=== PATIENT | male | born 1935 | race Caucasian/White ===

== ENCOUNTER 2017-01-26 09:14 | Observation (INO) ==
--- NOTE | 2017-01-26 09:46 | Emergency Department Note ---
Disposition Clinical Impression: Dehydration, Elevated troponin Nausea and vomiting Qualifiers: Vomiting type: unspecified Vomiting Intractability: non-intractable Qualified Code(s): R11.2 - Nausea with vomiting, unspecified Disposition: Admitted As Inpatient Condition: Fair Time of Disposition: 11:29 Nausea/Vomiting/Diarrhea HPI - General Chief complaint: ED Nausea/Vomiting/Diarrhea Stated complaint: weakness Time Seen by Provider: 01/26/17 09:27 Source: patient, EMS Limitations: no limitations Nursing Notes Reviewed: Yes Vital Signs Reviewed: Yes - History of Present Illness HPI Narrative: Nontoxic-appearing 81-year-old male presents from home by EMS for evaluation of generalized weakness, fatigue, nausea, vomiting, and diarrhea. Symptoms began 4 days ago and gradually worsened. He does complain of some diffuse abdominal cramping, that is slightly worse in the right lower quadrant region. He denies any fever, chest pain, shortness of breath, mucous or blood in stool, headache, myalgias, recent foreign travel, or known sick contacts. Pt Subjective Complaint: nausea, vomiting, diarrhea, other (Weakness, fatigue) Onset (ago): day(s) (4 days) Associated Abdominal Pain: Yes If pain, Location of pain: diffuse, RLQ Severity: moderate Quality: cramping Consistency: intermittent Improves with: nothing Worsens with: nonthing Associated symptoms: Denies: chest pain, cough, diaphoresis, fever/chills, headaches, shortness of breath - Related Data Home Medications Medication Instructions Recorded Confirmed Amitriptyline [Elavil] 25 mg PO BID 01/26/17 01/26/17 Aspirin [Lo-Dose Aspirin EC] 81 mg PO DAILY 01/26/17 01/26/17 Dapagliflozin Propanediol [Farxiga] 5 mg PO DAILY 01/26/17 01/26/17 Levothyroxine Sodium [Levoxyl] 75 mcg PO DAILY 01/26/17 01/26/17 Linagliptin [Tradjenta] 5 mg PO DAILY 01/26/17 01/26/17 Lisinopril [Zestril] 10 mg PO DAILY 01/26/17 01/26/17 Lutein [Natural Lutein] 20 mg PO DAILY 01/26/17 01/26/17 Metformin HCl [Glucophage] 1,000 mg PO BID 01/26/17 01/26/17 Multivitamin [Multivitamins] 1 cap PO DAILY 01/26/17 01/26/17 Allergies Allergy/AdvReac Type Severity Reaction Status Date / Time Penicillins Allergy Rash Verified 01/26/17 12:03 All systems ED: reviewed and negative except as stated. Constitutional: Denies: fever, chills, weakness, weight change Eyes: Denies: eye pain, eye discharge, vision change ENT ED: Denies: ear pain, throat pain, dental pain, hearing loss, epistaxis, congestion, dysphagia Cardiovascular: Denies: chest pain, palpitations, dyspnea on exertion, edema, syncope Respiratory: Denies: cough, dyspnea, wheezes, hemoptysis, stridor Gastrointestinal: Reports: as per HPI, abdominal pain, nausea, vomiting, diarrhea. Denies: constipation, hematemesis, melena, hematochezia Genitourinary: Denies: urgency, dysuria, frequency, hematuria Musculoskeletal: Denies: back pain, neck pain, arthralgia, myalgia Integumentary: Denies: rash, abrasion, lesions Neurological: Reports: as per HPI, weakness. Denies: headache, numbness, paresthesias, confusion, abnormal gait, vertigo Psychiatric: Denies: anxiety, depression, suicidal thoughts, homicidal thoughts , auditory hallucinations, visual hallucinations Endocrine: Denies: fatigue Hematological/Lymphatic: Denies: easy bleeding, easy bruising Allergic/Immunologic: Denies: facial swelling, urticaria Past Medical History - Past Medical History Attestation: Yes The following information was validated with the patient. Source: patient, nursing notes reviewed Medical history: Reports: diabetes Psychiatric history: Reports: no psych history - Social History Smoking Status: Never smoker Smokeless Tobacco Status: No Alcohol use: Reports: none Drug use: Reports: none Physical Exam - General Limitations: no limitations General appearance: alert, in no apparent distress - Head Head exam: atraumatic, normocephalic, normal inspection - Eye Eye exam: Present: normal appearance, PERRL, EOMI. Absent: nystagmus - ENT ENT exam: mucous membranes dry - Neck Neck exam: Present: normal inspection, full ROM, trachea midline - Chest Chest inspection: Present: normal inspection, symmetric chest wall rise - Respiratory Respiratory exam: Present: normal lung sounds bilaterally. Absent: respiratory distress, wheezes, stridor, accessory muscle use, prolonged expiratory phase - Cardiovascular Cardiovascular exam: Present: regular rate, normal rhythm, normal heart sounds - Abdominal Exam Abdominal exam: Present: soft, tenderness, normal bowel sounds. Absent: distention, guarding, rebound, rigidity Abdominal tenderness: Present: diffuse, mild - Extremities Exam Extremities exam: Present: normal inspection, full ROM. Absent: tenderness, pedal edema - Neurological Exam Neurological exam: Present: alert, oriented X3 - Psychiatric Psychiatric exam: Present: normal affect, normal mood - Skin Skin exam: Present: warm, dry, intact, normal color Course Course Narrative: I have discussed this patient's case with Dr. Martinez. Dr. Martinez and has had a [id number] evaluation with the patient and agrees with the aforementioned plan. 1125: I spoke with Dr. Newman of the hospitalist service who has accepted the patient for admission to his service for further treatment of dehydration and elevated cardiac enzyme level. Dr. Newman will obtain serial troponin levels for further evaluation of this. 1640: The patient remains in emergency department patient as a result of an ED hold. His repeat troponin did come back elevated compared to the first. Troponin is now 0.80. He stated he denies any chest pain or pressure. A repeat EKG was obtained and was found to be normal. EKG was timed 4 1637. EKG was reviewed by Dr. Martinez as well. EKG shows a sinus rhythm at a rate of 93 bpm. TX interval 173, QRS duration 86, QT/QTc interval 325/376. No ectopy noted. No STEMI. I have notified the hospitalist, Dr. Newman regarding this matter. He request that I consult with cardiology on-call. Allergy has been paged at this time and I am awaiting a return call back. 1710: Spoke with Dr. Hilliard, cardiology on-call. She recommends initiating a heparin drip. She states that a member from the [facility] helper service will see the patient in-house tomorrow. I discussed this plan with Dr. Martinez and Dr. Martinez is in agreement. 1738: I have made Dr. Newman aware of Dr. Hilliard's recommendation to initiate a heparin drip. Vital Signs Temperature 98.0 F 01/26/17 09:21 Pulse Rate 108 01/26/17 09:21 Respiratory Rate 16 01/26/17 09:21 Blood Pressure 138/92 01/26/17 09:21 O2 Sat by Pulse Oximetry 97 01/26/17 09:21 Temperature 98.0 F 01/26/17 09:21 Pulse Rate 94 01/26/17 14:16 Respiratory Rate 16 01/26/17 14:16 Blood Pressure 92/69 01/26/17 14:16 O2 Sat by Pulse Oximetry 96 01/26/17 11:55 Oxygen Delivery Oxygen Delivery Room Air Nausea/Vomiting/Diarrhea - Medical Records Medical records reviewed: Yes I reviewed the patient's medical records. - Lab Data Lab results reviewed: Yes I reviewed the patient's lab results. Lab results narrative: Laboratory Last Values WBC 6.8 K/mcL (4.3-11.1) 01/26/17 09:49 RBC 5.31 M/mcL (4.19-5.50) 01/26/17 09:49 Hgb 15.3 g/dL (12.9-16.9) 01/26/17 09:49 Hct 46.5 % (37.5-50.1) 01/26/17 09:49 MCV 87.6 fL (83.0-100.0) 01/26/17 09:49 MCH 28.8 pg (28.0-33.3) 01/26/17 09:49 MCHC 32.9 g/dL (31.6-35.5) 01/26/17 09:49 RDW 13.1 % (11.5-14.5) 01/26/17 09:49 Plt Count 218 K/mcL (140-400) 01/26/17 09:49 MPV 9.2 fL (9.4-12.4) L 01/26/17 09:49 Immature Gran % 0.6 % (0-4) 01/26/17 09:49 Seg Neutrophils % 72.5 % 01/26/17 09:49 Lymphocytes % 18.5 % 01/26/17 09:49 Monocytes % 7.2 % 01/26/17 09:49 Eosinophils % 0.6 % 01/26/17 09:49 Basophils % 0.6 % 01/26/17 09:49 Neutrophils # 4.9 K/mcL (1.6-8.9) 01/26/17 09:49 Lymphocytes # 1.3 K/mcL (0.6-4.6) 01/26/17 09:49 Monocytes # 0.5 K/mcL (0.0-1.3) 01/26/17 09:49 Eosinophils # 0.0 K/mcL (0.0-0.6) 01/26/17 09:49 Basophils # 0.0 K/mcL (0.0-0.2) 01/26/17 09:49 Sodium 138 mEq/L (136-145) 01/26/17 09:49 Potassium 4.4 mEq/L (3.5-4.5) 01/26/17 09:49 Chloride 102 mEq/L (98-109) 01/26/17 09:49 Carbon Dioxide 24 mEq/L (19-29) 01/26/17 09:49 BUN 26 mg/dL (8-26) 01/26/17 09:49 Creatinine 1.38 mg/dL (0.72-1.25) H 01/26/17 09:49 Est GFR ( Amer) 60 (> 60) 01/26/17 09:49 Est GFR (Non-Af Amer) 49 (> 60) L 01/26/17 09:49 BUN/Creatinine Ratio 19 (6-26) 01/26/17 09:49 Glucose 177 mg/dL (70-99) H 01/26/17 09:49 Calculated Osmolality 295 (280-300) 01/26/17 09:49 Lactic Acid 2.3 mmol/L (0.5-2.2) H 01/26/17 09:49 Calcium 10.2 mg/dL (8.6-10.8) 01/26/17 09:49 Troponin I 0.42 ng/mL (0-0.03) H* 01/26/17 09:49 Amylase 72 Units/L (25-125) 01/26/17 09:49 Lipase 23 Units/L (8-78) 01/26/17 09:49 Urine Color Yellow (Yellow) 01/26/17 09:53 Urine Clarity Clear (Clear) 01/26/17 09:53 Urine pH 5.5 pH Units (5.0-8.0) 01/26/17 09:53 Ur Specific [place] > 1.030 (1.010-1.025) H 01/26/17 09:53 Urine Protein Negative mg/dL (Neg-Trace) 01/26/17 09:53 Urine Glucose (UA) >=1000 mg/dL (Normal) H 01/26/17 09:53 Urine Ketones Trace mg/dL (Negative) H 01/26/17 09:53 Urine Blood Negative (Negative) 01/26/17 09:53 Urine Nitrite Negative (Negative) 01/26/17 09:53 Urine Bilirubin Negative (Negative) 01/26/17 09:53 Urine Urobilinogen Normal mg/dL (Normal) 01/26/17 09:53 Ur Leukocyte Esterase Negative (Negative) 01/26/17 09:53 Ur Culture Indicated? NO (NO) 01/26/17 09:53 Result diagrams: 01/26/17 09:49 01/26/17 09:49 Lab Results 01/26/17 01/26/17 01/26/17 Range/Units 09:49 09:49 09:49 WBC 6.8 (4.3-11.1) K/mcL RBC 5.31 (4.19-5.50) M/mcL Hgb 15.3 (12.9-16.9) g/dL Hct 46.5 (37.5-50.1) % MCV 87.6 (83.0-100.0) fL MCH 28.8 (28.0-33.3) pg MCHC 32.9 (31.6-35.5) g/dL RDW 13.1 (11.5-14.5) % Plt Count 218 (140-400) K/mcL MPV 9.2 L (9.4-12.4) fL Immature Gran % 0.6 (0-4) % Seg Neutrophils % 72.5 % Lymphocytes % 18.5 % Monocytes % 7.2 % Eosinophils % 0.6 % Basophils % 0.6 % Neutrophils # 4.9 (1.6-8.9) K/mcL Lymphocytes # 1.3 (0.6-4.6) K/mcL Monocytes # 0.5 (0.0-1.3) K/mcL Eosinophils # 0.0 (0.0-0.6) K/mcL Basophils # 0.0 (0.0-0.2) K/mcL Sodium 138 (136-145) mEq/L Potassium 4.4 (3.5-4.5) mEq/L Chloride 102 (98-109) mEq/L Carbon Dioxide 24 (19-29) mEq/L BUN 26 (8-26) mg/dL Creatinine 1.38 H (0.72-1.25) mg/dL Est GFR ( Amer) 60 (> 60) Est GFR (Non-Af Amer) 49 L (> 60) BUN/Creatinine Ratio 19 (6-26) Glucose 177 H (70-99) mg/dL Calculated Osmolality 295 (280-300) Lactic Acid 2.3 H (0.5-2.2) mmol/L Calcium 10.2 (8.6-10.8) mg/dL Troponin I (0-0.03) ng/mL Amylase 72 (25-125) Units/L Lipase 23 (8-78) Units/L Urine Color (Yellow) Urine Clarity (Clear) Urine pH (5.0-8.0) pH Units Ur Specific [place] (1.010-1.025) Urine Protein (Neg-Trace) mg/dL Urine Glucose (UA) (Normal) mg/dL Urine Ketones (Negative) mg/dL Urine Blood (Negative) Urine Nitrite (Negative) Urine Bilirubin (Negative) Urine Urobilinogen (Normal) mg/dL Ur Leukocyte Esterase (Negative) Ur Culture Indicated? (NO) 01/26/17 01/26/17 01/26/17 Range/Units 09:49 09:53 15:51 WBC (4.3-11.1) K/mcL RBC (4.19-5.50) M/mcL Hgb (12.9-16.9) g/dL Hct (37.5-50.1) % MCV (83.0-100.0) fL MCH (28.0-33.3) pg MCHC (31.6-35.5) g/dL RDW (11.5-14.5) % Plt Count (140-400) K/mcL MPV (9.4-12.4) fL Immature Gran % (0-4) % Seg Neutrophils % % Lymphocytes % % Monocytes % % Eosinophils % % Basophils % % Neutrophils # (1.6-8.9) K/mcL Lymphocytes # (0.6-4.6) K/mcL Monocytes # (0.0-1.3) K/mcL Eosinophils # (0.0-0.6) K/mcL Basophils # (0.0-0.2) K/mcL Sodium (136-145) mEq/L Potassium (3.5-4.5) mEq/L Chloride (98-109) mEq/L Carbon Dioxide (19-29) mEq/L BUN (8-26) mg/dL Creatinine (0.72-1.25) mg/dL Est GFR ( Amer) (> 60) Est GFR (Non-Af Amer) (> 60) BUN/Creatinine Ratio (6-26) Glucose (70-99) mg/dL Calculated Osmolality (280-300) Lactic Acid (0.5-2.2) mmol/L Calcium (8.6-10.8) mg/dL Troponin I 0.42 H* 0.80 H* (0-0.03) ng/mL Amylase (25-125) Units/L Lipase (8-78) Units/L Urine Color Yellow (Yellow) Urine Clarity Clear (Clear) Urine pH 5.5 (5.0-8.0) pH Units Ur Specific [place] > 1.030 H (1.010-1.025) Urine Protein Negative (Neg-Trace) mg/dL Urine Glucose (UA) >=1000 H (Normal) mg/dL Urine Ketones Trace H (Negative) mg/dL Urine Blood Negative (Negative) Urine Nitrite Negative (Negative) Urine Bilirubin Negative (Negative) Urine Urobilinogen Normal (Normal) mg/dL Ur Leukocyte Esterase Negative (Negative) Ur Culture Indicated? NO (NO) - Radiology Data Radiology results reviewed: Yes I reviewed the patient's radiology results. Chest X-Ray 01/26/17 09:28 IMPRESSION: Similar appearing chest without acute cardiopulmonary process. D/ / Yunior Mesa MD / Yunior Mesa MD Interpreting Provider: Yunior Mesa MD - EKG Data EKG attestation: Yes I reviewed and interpreted this EKG. EKG results narrative: EKG reviewed by Dr. Martinez as well. EKG reads atrial flutter/tachycardia with rapid ventricular response however Dr. Martinez disagrees. He states that he sees sinus tachycardia at a rate of 107 bpm. QRS duration 93. QT/QTc interval 325/ 388. No ectopy noted. No STEMI.
[2017-01-26] MEDS ORDERED: 0.9 % Sodium Chloride 1,000 ML IVC ONE ×2 (09:55→11:37)
[2017-01-26] MEDS ORDERED: *HR* Morphine 2 MG/ML SYRINGE IVP ONE (09:55)
[2017-01-26] MEDS ORDERED: Ondansetron 4 MG/2 ML VIAL IVP ONE (09:55)
[2017-01-26 10:07] LABS: Bilirubin,Urine Negative (Negative); Blood,Urine Negative (Negative); Clarity,Urine Clear (Clear); Color,Urine Yellow (Yellow); Glucose,Urine (UA) >=1000 mg/dL (Normal); Ketones,Urine Trace mg/dL (Negative); Leukocyte Esterase,Urine Negative (Negative); Nitrite,Urine Negative (Negative); PH,Urine 5.5 pH Units (5.0-8.0); Protein,Urine Negative (Neg-Trace); Specific Gravity,Urine > 1.030 (1.010-1.025); Urobilinogen,Urine Normal (Normal)
[2017-01-26 10:07] LABS: Basophils % 0.6 %; Eosinophils % 0.6 %; Hematocrit 46.5 % (37.5-50.1); Hemoglobin 15.3 g/dL (12.9-16.9); Immature Granulocytes % 0.6 % (0-4); Lymphocytes # 1.3 K/mcL (0.6-4.6); Lymphocytes % 18.5 %; Mean Corpuscular HGB Conc 32.9 g/dL (31.6-35.5); Mean Corpuscular Hemoglobin 28.8 pg (28.0-33.3); Mean Corpuscular Volume 87.6 fL (83.0-100.0); Mean Platelet Volume 9.2 fL (9.4-12.4); Monocytes # 0.5 K/mcL (0.0-1.3); Monocytes % 7.2 %; Neutrophils # 4.9 K/mcL (1.6-8.9); Platelet Count 218 K/mcL (140-400); Red Blood Count 5.31 M/mcL (4.19-5.50); Red Cell Distribution Width 13.1 % (11.5-14.5); Segmented Neutrophils % 72.5 %
[2017-01-26 10:15] LABS: Calcium 10.2 mg/dL (8.6-10.8); Potassium 4.4 mEq/L (3.5-4.5)
[2017-01-26] MEDS ORDERED: Aspirin 81 MG TAB.CHEW PO ONE (10:25)
--- NOTE | 2017-01-26 11:39 | Emergency Department Note ---
START Narrative - START START: I examined this patient and my medical decision-making was reviewed with the Resident Physician. I agree with the documented findings, disposition and treatment plan as described except to the extent set forth below. 81-year-old male presents to the ER with diarrhea. Patient was found to be hypotensive. Seem to be orthostatic. He is receiving IV fluids. Patient will need to be admitted for observation and IV resuscitation. He has no abdominal pain at this time. No fevers. No blood in his stool.
--- NOTE | 2017-01-26 11:52 | Internal Med History&Physical ---
Date of Encounter: 01/26/17 Time of Encounter: 11:49 Assessment and Plan (1) Diarrhea Current visit: Yes Status: Acute Patient with nausea vomiting and diarrhea suggestive of gastroenteritis. No recent antibiotic we will place him IV hydration Qualifiers: Diarrhea type: unspecified type Qualified Code(s): R19.7 - Diarrhea, unspecified (2) SAM (acute kidney injury) Current visit: Yes Status: Acute Most likely due to dehydration and hypovolemia (3) Diabetes Current visit: Yes Status: Chronic Chronic resume home medication and place on sliding scale Qualifiers: Diabetes mellitus type: type 2 Diabetes mellitus complication status: with oral complications Diabetes mellitus complication detail: with other oral complications Diabetes mellitus mcfp insulin use: unspecified mcfp insulin use status Qualified Code(s): 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 (4) Dehydration Current visit: Yes Status: Acute Due to nausea vomiting and diarrhea (5) Elevated troponin Current visit: Yes Status: Acute Patient said has chest pain about 3 days ago but no recurrence troponin is elevated suggestive of non-STEMI will trend troponin 2-D echo and consult cardiology (6) Nausea and vomiting Current visit: Yes Status: Acute Qualifiers: Vomiting type: unspecified Vomiting Intractability: non-intractable Qualified Code(s): R11.2 - Nausea with vomiting, unspecified Internal Medicine - H&P: HPI Chief complaint: nausea, vomitting ansd diarrhea Admitted From: Emergency Dept Plans for Post Hospital Care: Home History of present illness: Mr. Leone is a 81 year old male Patient with history of diabetes, CK D, patient presented emergency room with 4 days of nausea and vomiting diarrhea with the generalized weakness says hadsome flu symptoms but then diarrhea persisted. Also has some chest in about 3 days ago but has not had any recurrence has some mild abdominal cramping. Evaluation. Mild lactic acidosis creatinine has gone up from 1.2-1.38 also troponin 0.42 no chest pain at present Past Med Surg Social Fam HX - Past Medical History Medical history: diabetes Psychiatric history: no psych history - Social History Smoking Status: Never smoker Smokeless Tobacco Status: No Alcohol use: none Drug use: none Internal Medicine - H&P: Meds 3 Allergy/AdvReac Type Severity Reaction Status Date / Time Penicillins Allergy Rash Verified 07/25/16 18:42 All Systems PM: A 10-system review of systems was performed and is negative for pertinent findings except as documented above in the HPI. - Constitutional Constitutional: fatigue, lethargy, malaise - EENT Eyes: no change in vision, no discharge, no pain, no photophobia Ears: no ear discharge, no ear pain, no tinnitus Nose, mouth and throat: no dysphagia, no nasal discharge, no neck pain, no sore throat - Cardiovascular Cardiovascular ROS IM: chest pain - Gastrointestinal Gastrointestinal: no abdominal pain, no diarrhea, no hematemesis, no hematochezia, no melena, no nausea, no vomiting - Musculoskeletal Musculoskeletal ROS IM: no numbness, no tingling - Integumentary Integumentary IM: no rash, no unusual bruising - Neurological Neurological ROS: no confusion, no convulsions, no focal weakness, no numbness, no tingling, no tremor(s) - Constitutional Vitals: Temp Pulse Resp BP Pulse Ox 98.0 F 107 16 109/85 97 01/26/17 09:21 01/26/17 09:57 01/26/17 09:21 01/26/17 09:57 01/26/17 09:21 - Eye Eye exam: Present: PERRL, conjuntiva pink, sclera anicteric Pupils: Present: PERRL - Respiratory Respiratory exam: Present: CTAB. Absent: accessory muscle use, rales, rhonchi, wheezes - Cardiovascular Cardiovascular exam: Present: RRR, +S1, +S2. Absent: diastolic murmur, gallop, rubs, systolic murmur - GI/Abdominal GI/Abdominal exam: Present: normal bowel sounds, soft, no peritoneal signs. Absent: distended, tenderness - Extremities Exam Extremities exam: Present: warm, radial pulses palpable and symmetrical. Absent : calf tenderness, cyanotic, pedal edema Internal Med - H&P Results - Labs CBC & Chem 7: 01/26/17 09:49 01/26/17 09:49 Labs: Short CBC 01/26/17 Range/Units 09:49 WBC 6.8 (4.3-11.1) K/mcL Hgb 15.3 (12.9-16.9) g/dL Hct 46.5 (37.5-50.1) % Plt Count 218 (140-400) K/mcL Neutrophils # 4.9 (1.6-8.9) K/mcL BMP 01/26/17 09:49 Sodium 138 Potassium 4.4 Chloride 102 Carbon Dioxide 24 BUN 26 Creatinine 1.38 H Glucose 177 H Calcium 10.2 Cardiac Enzymes 01/26/17 Range/Units 09:49 Troponin I 0.42 H* (0-0.03) ng/mL Urine 01/26/17 Range/Units 09:53 Urine Color Yellow (Yellow) Urine Clarity Clear (Clear) Urine pH 5.5 (5.0-8.0) pH Units Ur Specific [place] > 1.030 H (1.010-1.025) Urine Protein Negative (Neg-Trace) mg/dL Urine Glucose (UA) >=1000 H (Normal) mg/dL - Impressions ITS Impressions Chest X-Ray 01/26/17 09:28 IMPRESSION: Similar appearing chest without acute cardiopulmonary process. D/ / Yunior Mesa MD / Yunior Mesa MD Interpreting Provider: Yunior Mesa MD
[2017-01-26] MEDS ORDERED: *HR* Morphine 2 MG/ML SYRINGE IVP PRN (11:57)
[2017-01-26] MEDS ORDERED: Naloxone 0.4 MG/ML INJ IVP PRN (11:57)
[2017-01-26] MEDS ORDERED: Ondansetron 4 MG/2 ML VIAL IVP PRN (11:57)
[2017-01-26] MEDS ORDERED: Dextrose Gel 15 GM PO PRN ×2 (12:01)
[2017-01-26] MEDS ORDERED: *HR* Dextrose 50 % in Water (Syg) 50 ML SYRINGE IVP PRN (12:01)
[2017-01-26] MEDS ORDERED: D5% in Water 1,000 ML IVC PRN (12:01)
[2017-01-26] MEDS ORDERED: *HR* Heparin 5,000 UNIT/ML VIAL IVP ONE (17:16)
[2017-01-26] MEDS ORDERED: *HR* Heparin 5,000 UNIT/ML VIAL IVP PRN ×2 (17:16)
--- NOTE | 2017-01-26 17:35 | Electrocardiograph Report ---
[place] [id number] Test Date: 2017-01-26 Pat Name: Fernando Leone Department: 104 Room: [id number] Gender: M Equity Holder: : [id number] Requested By: Larry Farias Order Number: [id number] Reading MD: Jess Hilliard Measurements Intervals [place] Rate: 107 P: [place]: 0 QRS: 83 QRSD: 93 T: 72 QT: 325 QTc: 388 Interpretive Statements SINUS TACHYCARDIA ABNORMAL RHYTHM ECG Electronically Signed On 01-26-2017 17:34:03 EST by Jess Hilliard
[2017-01-26 17:41] LABS: Hematocrit 41.5 % (37.5-50.1); Mean Corpuscular Hemoglobin 29.3 pg (28.0-33.3); Mean Corpuscular Volume 88.7 fL (83.0-100.0); Mean Platelet Volume 9.1 fL (9.4-12.4); Platelet Count 208 K/mcL (140-400); Red Blood Count 4.68 M/mcL (4.19-5.50); Red Cell Distribution Width 13.2 % (11.5-14.5)
[2017-01-26 17:46] LABS: INR 1.1; Prothrombin Time 11.3 Seconds (9.4-12.1)
[2017-01-26 17:49] LABS: Activated Partial Thrombo Time 26.6 Seconds (26.0-36.0); Hemoglobin 13.7 g/dL (12.9-16.9)
[2017-01-26] MEDS: 0.9 % Sodium Chloride 1,000 ML IVC SCH (18:22)
[2017-01-26] MEDS: Insulin LISPRO 300 UNITS/3 ML VIAL SQ SCH ×2 (18:25→20:30)
[2017-01-26] MEDS: Heparin 25,000 UNIT/500 ML D5W 25,000 UNIT/500 ML BAG IVC SCH (19:28)
[2017-01-27 02:49] LABS: Hematocrit 38.7 % (37.5-50.1); Hemoglobin 12.7 g/dL (12.9-16.9); Mean Corpuscular HGB Conc 32.8 g/dL (31.6-35.5); Mean Corpuscular Hemoglobin 29.2 pg (28.0-33.3); Mean Platelet Volume 8.9 fL (9.4-12.4); Platelet Count 181 K/mcL (140-400); Red Blood Count 4.35 M/mcL (4.19-5.50)
[2017-01-27 03:05] LABS: Alanine Aminotransferase 13 Units/L (0-55); Albumin 3.5 g/dL (3.5-5.0); Alkaline Phosphatase 53 Units/L (38-126); Aspartate Amino Transferase 27 Units/L (5-34); Bilirubin,Total 1.4 mg/dL (0.2-1.2); Blood Urea Nitrogen 20 mg/dL (8-26); Calcium 9.4 mg/dL (8.6-10.8); Carbon Dioxide 24 mEq/L (19-29); Chloride 106 mEq/L (98-109); Chol/HDL Ratio 4.7 (0-4.9); Cholesterol 168 mg/dL (< 200); Globulin 3.4 g/dL (2.4-3.5); Glucose 142 mg/dL (70-99); HDL Cholesterol 36 mg/dL (40-59); LDL Cholesterol,Calculated 101 mg/dL (0-99); Osmolality,Calculated 293 (280-300); Potassium 4.2 mEq/L (3.5-4.5); Sodium 139 mEq/L (136-145); Total Protein 6.9 g/dL (6.0-8.3); Triglycerides 157 mg/dL (< 150)
[2017-01-27 03:53] LABS: BUN/Creatinine Ratio 17 (6-26); Magnesium 1.4 mg/dL (1.6-2.6); eGFR For African Americans > 60 (> 60); eGFR For Non-African Americans 60 (> 60)
[2017-01-27] MEDS: 0.9 % Sodium Chloride 1,000 ML IVC SCH (04:13)
[2017-01-27] MEDS: Insulin LISPRO 300 UNITS/3 ML VIAL SQ SCH ×4 (07:39→21:25)
--- NOTE | 2017-01-27 11:07 | Cardiology Consult Note ---
<Pramod Ruiz - Last Filed: 01/27/17 13:32> Date of Encounter: 01/27/17 Time of Encounter: 09:45 Assessment and Plan (1) Elevated troponin Current Visit: Yes Status: Acute Patient has an elevated troponin level. -Troponin has been steadily increasing since his arrival: 0.42, 0.80, 1.33, 1.80. -Patient denies having any chest pain. -No smoking history or history of cardiac disease. Plan: -Currently on heparin drip -Patient will need cardiac catheterization Discussion w patient/family: The assessment and plan as outlined above was discussed with the patient and/or family members who expressed understanding and agreement. All questions were answered. Thank you for involving us in the care of your patient. Please call with any questions. History of Present Illness Consult date: 01/27/17 Chief complaint: N/V History of present illness: Mr. Leone is a 81 year old male with a PMH of diabetes mellitus presents to the hospital with the chief complaint of nausea, vomiting, diarrhea, and generalized weakness. Patient reported that his symptoms began approximately 4 days ago and gradually worsened. He complained of diffuse abdominal cramping slightly worse in the right lower quadrant. He denied having any fever, chest pain, shortness of breath, mucous or blood in his stool, headache, myalgias, recent travel, or known sick contacts. Upon arrival to the emergency department , patient was found to have an elevated troponin level at 0.42. EKG was unremarkable. Patient's troponin level continued to rise. Troponin levels increased as follows: 0.42, 0.80, 1.33, 1.80. Patient had a slightly elevated BNP at 172. Patient was started on a heparin drip. Denied having any dizziness , diaphoresis, or chest pain. Patient was started on IV fluids. Patient was tachycardic on presentation with pulse of 108. IV fluids were started. Patient was seen and examined at bedside this morning. He denies having any difficulty. He has no chest pain, nausea, fever, chills, or diarrhea this morning. He is resting comfortably in bed and has no complaint. The patient denies being a smoker. He denies having any cardiac issues or history of hypertension. He denies a family history of cardiac disease. Past Med Surg Social Fam HX - Past Medical History Medical history: cancer, diabetes Psychiatric history: no psych history - Past Surgical History Surgical History: cataract, cholecystectomy, orthopedic, other - Social History Smoking Status: Never smoker Smokeless Tobacco Status: No Alcohol use: none Drug use: none Medications and Allergies Amitriptyline [Elavil] 25 mg PO BID 01/26/17 [History] Aspirin [Lo-Dose Aspirin EC] 81 mg PO DAILY 01/26/17 [History] Dapagliflozin Propanediol [Farxiga] 5 mg PO DAILY 01/26/17 [History] Levothyroxine Sodium [Levoxyl] 75 mcg PO DAILY 01/26/17 [History] Linagliptin [Tradjenta] 5 mg PO DAILY 01/26/17 [History] Lisinopril [Zestril] 10 mg PO DAILY 01/26/17 [History] Lutein [Natural Lutein] 20 mg PO DAILY 01/26/17 [History] Metformin HCl [Glucophage] 1,000 mg PO BID 01/26/17 [History] Multivitamin [Multivitamins] 1 cap PO DAILY 01/26/17 [History] 3 Allergy/AdvReac Type Severity Reaction Status Date / Time Penicillins Allergy Rash Verified 01/26/17 12:03 All Systems Review: A 10-system review of systems was performed and is negative for pertinent findings except as documented above in the HPI. - Constitutional Constitutional: no fatigue, no fever(s), no lethargy - Cardiovascular Cardiovascular: no chest pain at rest, no chest pain with exertion, no diaphoresis, no dyspnea at rest, no dyspnea on exertion, no irregular heart rhythm, no radiating jaw, neck or arm pain - Neurological Neurological: no dizziness, no syncope Physical Examination Vital Signs, Last 4 Hours Temp Pulse Resp BP Pulse Ox 01/27/17 10:45 98.4 F 87 14 107/74 96 General: Conversant, No Apparent Distress HEENT: Atraumatic, Normocephaly, Mucus Membranes Moist Neck: No JVD, Normal carotid pulses Cardiac: Reg Rate and Rhythm, Normal S1 and S2, No Murmur Lungs: Normal Breath Sounds, No Wheeze, Rales, Rhonchi Neuro: Alert and responsive, No focal deficits noted Abdomen: Soft, Non-Tender Skin: No rashes noted on visualized skin Musculoskeletal: No Chest Wall Tenderness Extremities: No Clubbing, No Cyanosis, No Edema, Normal Pulses Results 01/27/17 02:41 01/27/17 02:41 Lab Results 01/26/17 01/26/17 01/26/17 17:32 17:32 17:32 WBC 8.5 Hgb 13.7 D Hct 41.5 Plt Count 208 INR 1.1 APTT 26.6 Sodium Potassium Chloride Carbon Dioxide BUN Creatinine Glucose Calcium Magnesium 1.6 Total Bilirubin AST ALT Alkaline Phosphatase Troponin I B-Natriuretic Peptide 01/26/17 01/27/17 01/27/17 21:33 02:41 02:41 WBC 7.5 Hgb 12.7 L Hct 38.7 Plt Count 181 INR APTT Sodium Potassium Chloride Carbon Dioxide BUN Creatinine Glucose Calcium Magnesium Total Bilirubin AST ALT Alkaline Phosphatase Troponin I 1.33 H* 1.80 H* B-Natriuretic Peptide 01/27/17 01/27/17 01/27/17 02:41 02:41 02:41 WBC Hgb Hct Plt Count INR APTT 58.7 H D Sodium 139 Potassium 4.2 Chloride 106 Carbon Dioxide 24 BUN 20 Creatinine 1.17 Glucose 142 H Calcium 9.4 Magnesium 1.4 L Total Bilirubin 1.4 H AST 27 ALT 13 Alkaline Phosphatase 53 Troponin I B-Natriuretic Peptide 172 H 01/27/17 09:51 WBC Hgb Hct Plt Count INR APTT 81.1 H Sodium Potassium Chloride Carbon Dioxide BUN Creatinine Glucose Calcium Magnesium Total Bilirubin AST ALT Alkaline Phosphatase Troponin I B-Natriuretic Peptide Consult Discharge Plan - Plan Referrals: Beth Schulz MD [Primary Care Provider] - <LuistataJess - Last Filed: 01/27/17 17:12> Date of Encounter: 01/27/17 - Attending Attestation I examined this patient and my medical decision-making was reviewed with the Resident Physician. I agree with the documented findings, disposition and treatment plan. Mr. Leone presents with gastrointestinal issues of nausea, vomiting, diarrhea. Incidentally discovered is elevated troponin, now at 1.80. He has no history of CAD. However, risk factors include diabetes and HTN. Recommend continuing heparin drip. We discussed proceeding with left heart catheterization for NSTEMI. The risks, benefits and alternatives of the procedure were discussed with the patient. The patient expressed understanding and verbalized agreement to proceed. Renal function has normalized after hydration. Assessment and Plan Discussion w patient/family: The assessment and plan as outlined above was discussed with the patient and/or family members who expressed understanding and agreement. All questions were answered. Thank you for involving us in the care of your patient. Please call with any questions. History of Present Illness History of present illness: Mr. Leone is a 81 year old male All Systems Review: A 10-system review of systems was performed and is negative for pertinent findings except as documented above in the HPI. Physical Examination Vital Signs, Last 4 Hours Temp Pulse Resp BP Pulse Ox 01/27/17 14:30 98.7 F 89 14 102/68 97 Results 01/27/17 02:41 01/27/17 02:41 Lab Results 01/26/17 01/26/17 01/26/17 17:32 17:32 17:32 WBC 8.5 Hgb 13.7 D Hct 41.5 Plt Count 208 INR 1.1 APTT 26.6 Sodium Potassium Chloride Carbon Dioxide BUN Creatinine Glucose Calcium Magnesium 1.6 Total Bilirubin AST ALT Alkaline Phosphatase Troponin I B-Natriuretic Peptide 01/26/17 01/27/17 01/27/17 21:33 02:41 02:41 WBC 7.5 Hgb 12.7 L Hct 38.7 Plt Count 181 INR APTT Sodium Potassium Chloride Carbon Dioxide BUN Creatinine Glucose Calcium Magnesium Total Bilirubin AST ALT Alkaline Phosphatase Troponin I 1.33 H* 1.80 H* B-Natriuretic Peptide 01/27/17 01/27/17 01/27/17 02:41 02:41 02:41 WBC Hgb Hct Plt Count INR APTT 58.7 H D Sodium 139 Potassium 4.2 Chloride 106 Carbon Dioxide 24 BUN 20 Creatinine 1.17 Glucose 142 H Calcium 9.4 Magnesium 1.4 L Total Bilirubin 1.4 H AST 27 ALT 13 Alkaline Phosphatase 53 Troponin I B-Natriuretic Peptide 172 H 01/27/17 01/27/17 09:51 16:25 WBC Hgb Hct Plt Count INR APTT 81.1 H 77.2 H Sodium Potassium Chloride Carbon Dioxide BUN Creatinine Glucose Calcium Magnesium Total Bilirubin AST ALT Alkaline Phosphatase Troponin I B-Natriuretic Peptide
[2017-01-27] MEDS ORDERED: Magnesium Sulfate 2 GM in D5% in Water 100 ML IVPB ONE (14:33)
[2017-01-27] MEDS: Heparin 25,000 UNIT/500 ML D5W 25,000 UNIT/500 ML BAG IVC SCH (16:01)
[2017-01-27] MEDS: Aspirin Enteric Coated 81 MG Tablet PO SCH (16:01)
--- NOTE | 2017-01-27 16:33 | Electrocardiograph Report ---
[place] [id number] Test Date: 2017-01-26 Pat Name: Fernando Leone Department: 104 Room: 2NE31 Gender: M [employer] Per[employer]: : 1935 Requested By: Larry Farias Order Number: [id number] Reading MD: Kevin Patterson DO Measurements Intervals May Rate: 93 P: 60 WA: 173 QRS: 78 QRSD: 86 T: 69 QT: 325 QTc: 376 Interpretive Statements SINUS RHYTHM Electronically Signed On 01-27-2017 16:31:40 EST by Kevin Patterson DO
--- NOTE | 2017-01-27 17:27 | Internal Med Progress Note ---
Date of Encounter: 01/27/17 Time of Encounter: 11:00 - Assessment and plan (1) Elevated troponin Current Visit: Yes Status: Acute Assessment and plan: -Patient with continued elevated cardiac biomarkers. -Cardiology consulted with recommendations for cardiac catheterization on . (2) Dehydration Current Visit: Yes Status: Acute Assessment and plan: -Resolved with IV fluids; back secondary to gastroenteritis with nausea and vomiting/diarrhea. (3) Nausea and vomiting Current Visit: Yes Status: Acute Assessment and plan: -Resolved; supportive care Qualifiers: Vomiting type: unspecified Vomiting Intractability: unspecified Qualified Code(s): R11.2 - Nausea with vomiting, unspecified (4) Diarrhea Current Visit: Yes Status: Acute Assessment and plan: -Resolved; suspect secondary to gastroenteritis. Qualifiers: Diarrhea type: unspecified type Qualified Code(s): R19.7 - Diarrhea, unspecified (5) SAM (acute kidney injury) Current Visit: Yes Status: Acute Assessment and plan: -Resolved with IV fluids. (6) DVT prophylaxis Current Visit: Yes Status: Acute Assessment and plan: -On heparin drip - Subjective Interval history: Patient's acute kidney injury has resolved but continues to have elevated cardiac biomarkers. Plans for a cardiac catheterization on 01/28/17. - Constitutional Vitals: Temp Pulse Resp BP Pulse Ox 98.7 F 89 14 102/68 97 01/27/17 14:30 01/27/17 14:30 01/27/17 14:30 01/27/17 14:30 01/27/17 14:30 General appearance: Present: A&O X 3 - Respiratory Respiratory exam: Present: CTAB. Absent: accessory muscle use, rales, rhonchi, wheezes - Cardiovascular Cardiovascular exam: Present: RRR, +S1, +S2. Absent: diastolic murmur, gallop, rubs, systolic murmur Internal Medicine: Result - Labs CBC & Chem 7: 01/27/17 02:41 01/27/17 02:41 Labs: Short CBC 01/26/17 01/27/17 Range/Units 17:32 02:41 WBC 8.5 7.5 (4.3-11.1) K/mcL Hgb 13.7 D 12.7 L (12.9-16.9) g/dL Hct 41.5 38.7 (37.5-50.1) % Plt Count 208 181 (140-400) K/mcL BMP 01/27/17 02:41 Sodium 139 Potassium 4.2 Chloride 106 Carbon Dioxide 24 BUN 20 Creatinine 1.17 Glucose 142 H Calcium 9.4 Cardiac Enzymes 01/26/17 01/27/17 Range/Units 21:33 02:41 Troponin I 1.33 H* 1.80 H* (0-0.03) ng/mL Liver Function 01/27/17 Range/Units 02:41 Total Bilirubin 1.4 H (0.2-1.2) mg/dL AST 27 (5-34) Units/L ALT 13 (0-55) Units/L Alkaline Phosphatase 53 (38-126) Units/L Albumin 3.5 (3.5-5.0) g/dL - ABG Interpretation ABG results: PT/INR, D-dimer PT 11.3 Seconds (9.4-12.1) 01/26/17 17:32 Consult Discharge Plan - Plan Referrals: Beth Schulz MD [Primary Care Provider] -
[2017-01-28] MEDS: Aspirin Enteric Coated 81 MG Tablet PO SCH (07:29)
[2017-01-28] MEDS: Insulin LISPRO 300 UNITS/3 ML VIAL SQ SCH ×4 (07:33→22:53)
[2017-01-28 08:30] LABS: Basophils # 0.1 K/mcL (0.0-0.2); Basophils % 1.2 %; Eosinophils # 0.3 K/mcL (0.0-0.6); Eosinophils % 5.9 %; Hematocrit 38.1 % (37.5-50.1); Hemoglobin 12.6 g/dL (12.9-16.9); Immature Granulocytes % 0.2 % (0-4); Lymphocytes # 1.8 K/mcL (0.6-4.6); Lymphocytes % 32.3 %; Mean Corpuscular HGB Conc 33.1 g/dL (31.6-35.5); Mean Corpuscular Hemoglobin 28.8 pg (28.0-33.3); Monocytes # 0.6 K/mcL (0.0-1.3); Monocytes % 10.1 %; Neutrophils # 2.8 K/mcL (1.6-8.9); Platelet Count 184 K/mcL (140-400); Red Blood Count 4.38 M/mcL (4.19-5.50); Red Cell Distribution Width 12.9 % (11.5-14.5); Segmented Neutrophils % 50.3 %
[2017-01-28 08:46] LABS: BUN/Creatinine Ratio 12 (6-26); Blood Urea Nitrogen 13 mg/dL (8-23); Carbon Dioxide 26 mEq/L (23-29); Chloride 103 mEq/L (98-107); Glucose 151 mg/dL (70-105); Osmolality,Calculated 281 (280-300); Potassium 3.9 mEq/L (3.5-5.1); Sodium 134 mEq/L (136-145); eGFR For African Americans > 60 (> 60); eGFR For Non-African Americans > 60 (> 60)
[2017-01-28] MEDS ORDERED: Verapamil 5 MG/2 ML VIAL ONE (13:51)
[2017-01-28] MEDS ORDERED: 0.9 % Sodium Chloride 1,000 ML ONE ×2 (13:52→14:13)
[2017-01-28] MEDS ORDERED: Nitroglycerin 1,000 MCG/10 ML VIAL IV ONE ×2 (13:52→15:01)
[2017-01-28] MEDS ORDERED: *HR* Heparin 10,000 UNIT/10 ML VIAL ONE (13:52)
[2017-01-28] MEDS ORDERED: *HR* FentaNYL (PF) 100 MCG/2 ML VIAL ONE (14:13)
[2017-01-28] MEDS ORDERED: *HR* Midazolam HCl 2 MG/2 ML VIAL ONE (14:13)
--- NOTE | 2017-01-28 14:13 | Pre-Sedation Evaluation ---
Pre-sedation evaluation - Pre-sedation checklist Date of procedure: 01/28/17 Procedure: Heart Cath Recent Vitals: Last Vital Signs Temp 97.4 F L 01/28/17 11:34 Pulse 76 01/28/17 11:34 Resp 16 01/28/17 11:34 BP 103/68 01/28/17 11:34 Pulse Ox 97 01/28/17 11:34 H&P (including ROS) documented in medical record: Yes Previous reaction to sedatives/anesthetics: No Dietary Status: NPO after Midnight Airway Assessment: Patient can open mouth completely, TMJ function normal ASA Classification *see protocol: CLASS II-Mild systemic disease Plan of Care: Pt appropriate candidate for procedure/moderate/conscious sedation , Risks/benefits of procedure/sedation discussed w/ patient/family
[2017-01-28] MEDS ORDERED: Tirofiban 12.5 MG/250ML 12.5 MG/250 ML BAG ONE (14:37)
[2017-01-28] MEDS ORDERED: *HR* Ticagrelor 90 MG TABLET ONE (15:06)
[2017-01-28] MEDS ORDERED: Tirofiban 12.5 MG/250ML 12.5 MG/250 ML BAG IVC SCH (15:15)
--- NOTE | 2017-01-28 15:22 | Invasive Diagnostic Lab Proc ---
Name: Fernando Leone Date of Study: 01/28/2017 Date: 1935 Ht: 74.0in Medical Record#: [id number] Age: 81 Wt: 172.18lb Gender: Male BSA: 2.04 Order #: [id number] BMI: 22.1 Physicians Procedure Physician: Jorge Winchester MD, [facility] Referring MD: Beth Schulz MD Referring MD: Staff Name Position Time In Chaz Martinez RN Monitor 02:05 PM Merrick Ha RN Certified Coding Specialist 02:05 PM Deanna Mccarthy RT Scrub 02:05 PM Indications Indication Non-Stemi Procedures Performed Procedure L HRT ARTERY/VENTRICLE ANGIO PRQ CARD RENA STENT W/ANGIO 1 VSL PRQ CARD STENT W/ANGIO ADDL Pre-Procedure Checklist Informed consent is complete signed and on chart. H&P is on chart. ID band is on and ID verified with patient. Patient NPO for procedure The procedure was described for the patient and questions were answered. Blood Pressure: 103/68 ECG is on chart. Rhythm: NSR Plan of Care Patient will tolerate the procedure without complications. Adequate level of comfort will be maintained. Hemodynamics will remain stable Patient will recover from procedure without complications. Respiratory function will be maintained. Cardiac rhythm will remain stable. Patient temperature will be maintained. Patient and/or family have verbalized understanding of the procedure. Patient Education Chief Complaint/Reason for Test: Cardiac Cath Developmental Category: Geriatric (65+ years) Developmentally Appropriate for Age: Yes Learning Barriers: None Education Needs: Procedure Education Method: Verbal Information Taught: Cardiac Cath Educational Evaluation: Able to repeat information Intravenous Access Time IV Size Location DC'd Fluid/Drip Rate Units RN 01:51 PM 20g 1 1/" Patent On Arrival Rt Antecubital 0.9NaCl 25 ml/hr Chaz Martinez RN Allergies PCN Vital Signs Time BP (mmHg) HR (bpm) O2 Sat. RR (bpm) LOC 02:25 PM / % 4 = Oriented but drowsy 02:25 PM / % 4 = Oriented but drowsy 02:40 PM / % 4 = Oriented but drowsy 02:55 PM / % 5 = Fully awake and oriented or at pre-proc level 02:12 PM 134 / 76 87 97 % 7 02:17 PM 130 / 79 86 99 % 13 02:22 PM 107 / 66 84 95 % 13 02:27 PM 109 / 65 84 97 % 13 02:30 PM 89 / 56 90 94 % 15 02:31 PM 94 / 59 98 93 % 14 02:32 PM 94 / 56 99 93 % 14 02:37 PM 105 / 66 91 94 % 13 02:42 PM 109 / 67 87 95 % 14 02:47 PM 107 / 69 88 96 % 14 02:52 PM 97 / 53 93 96 % 15 02:57 PM 97 / 54 91 95 % 14 03:02 PM 98 / 61 87 94 % 13 03:07 PM 100 / 58 83 98 % 12 03:12 PM 90 / 63 % Procedural Medications Time Medication Dose Units Method Given By 02:18 PM Oxygen 2 L/min nasal cannula Merrick Ha RN 02:18 PM Versed 2 mg Intravenous Merrick Ha RN 02:18 PM Fentanyl 50 mcg Intravenous Merrick Ha RN 02:25 PM Lidocaine 2% 1 ml Subcutaneous Jorge Winchester MD, FAC 02:27 PM Heparin 1000 units Nitroglycerin 200 mcg Verapamil 2.5 mg Intraarterial Jorge Winchester MD, FACC 02:39 PM Aggrastat Bolus: 37.5 ml Intravenous Merrick Ha RN 02:39 PM Aggrastat 5mg/100ml 6.75 ml/hr Intravenous Merrick Ha RN 02:40 PM Heparin 2000 units Intravenous Merrick Ha RN 02:51 PM Nitroglycerin 200 mcg Intracoronary Jorge Winchester MD 02:56 PM Nitroglycerin 200 mcg Intracoronary Jorge Winchester MD 03:07 PM Brilinta 180 mg Orally Merrick Ha RN ASA Classification: CLASS II- Mild systemic disease (i.e. well-controlled diabetes, hypertension, asthma, cigarette smoking) Obuchra Score Preprocedure Postprocedure Activity 2- Moves 4 extremities sustained head lift Activity 2- Moves 4 extremities sustained head lift Circulation 2- SBP +/= 20 points of pre-anesthetic level Circulation 2- SBP +/= 20 points of pre-anesthetic level Consciousness 2- Awake and alert oriented x 3 Consciousness 2- Awake and alert oriented x 3 O2 Saturation 2- Able to maintain O2 satruation of 92% on room air O2 Saturation 2- Able to maintain O2 satruation of 92% on room air Respiratory 2- Able to deep breathe and cough well Respiratory 2- Able to deep breathe and cough well Total Score 10 Total Score 10 Contrast Agent: Isovue Diagnostic Contrast: 169 ml Total Contrast: 169 ml Fluoro Dose: 623 mGy Activated Clotting Time Time Seconds to Clot 02:39 PM 212 Procedure Log Time Note Enter By 01:48 PM CathStat 02:05 PM Case Start 02:05 PM Pt arrived to pipelines laborer 1 at 14:05 csmith 02:05 PM Chaz Martinez RN Position: Monitor Time in: 14:05 csmith 02:05 PM Merrick Ha RN Position: Certified Coding Specialist Time in: 14:05 csmith 02:05 PM Deanna Mccarthy Position: Scrub Time in: 14:05 csmith 02:05 PM Patient charges- Angio tray pack, Navilyst 3mm J, Pulse Oximetry and ACIST tubing and transducer csmith 02:09 PM Vitals capture started with the following parameters, Patient=Adult, Interval=5 min, Initial Ictbdoyw=404 mmHg, Deflation Rate=5 mmHg, Cuff placed on Left Arm 02:10 PM Vitals capture stopped. 02:11 PM Vitals capture started with the following parameters, Patient=Adult, Interval=5 min, Initial Sxfapize=112 mmHg, Deflation Rate=5 mmHg, Cuff placed on Left Arm 02:12 PM Procedure start 14:12 csmith 02:12 PM HR=87 bpm, KBAM=622/76 mmhg, SpO2=97.0 %, Resp=7 B/min 02:12 PM Physician arrived 14:12 csmith 02:12 PM Meet and greet completed csmith 02:12 PM Sign in performed according to hospital policy. csmith 02:17 PM HR=86 bpm, MVNA=965/79 mmhg, SpO2=99.0 %, Resp=13 B/min, Comment=nsr 02:17 PM Hair removed from procedure site in procedure lab using clippers. Right wrist and right groin prepped with Chloraprep by Chaz Martinez RN, safety strap applied then patient was draped. Skin intact. csmith 02:18 PM Time: 14:18 Oxygen on at 2 L/min per nasal cannula by Merrick Ha RN csmith 02:18 PM Time: 14:18 Versed 2 mg Intravenous Given by Merrick Ha RN csmith 02:18 PM Time: 14:18 Fentanyl 50 mcg Intravenous Given by Merrick Ha RN csmith 02:22 PM Pressure channel 1 zeroed. 02:22 PM HR=84 bpm, OFLX=323/66 mmhg, SpO2=95.0 %, Resp=13 B/min, Comment=nsr 02: PM Time: 14:25 Patient comfortable and pain free: Yes csmith 02:25 PM Time: 14:25LOC: 4 = Oriented but drowsy csmith : PM Time: 14:25 1 ml Lidocaine 2% to right radial Subcutaneous Given by Jorge Winchester MD, [facility] csmith 02: PM Access obtained by percutaneous puncture. 5/6Fr 11cm Terumo Glidesheath sheath placed in right Radial artery. [id number] csmith 02:27 PM HR=84 bpm, DGUZ=958/65 mmhg, SpO2=97.0 %, Resp=13 B/min, Comment=nsr : PM Time: 14: Patient given 1000 units Heparin, 200 mcg Nitroglycerin, and 2.5 mg Verapamil Intraarterial by Jorge Winchester MD, [facility]. This is given to reduce risk of vessel spasm and thrombosis. csmith 02:27 PM 5Fr TIG catheter inserted over the wire [facility] csmith 02: PM 0.035 260cm Navilyst 3mmJ wire [id number] csmith 02:29 PM RCA angiography performed in multiple views. csmith 02:29 PM NIBP STAT measurement started. 02:30 PM HR=90 bpm, NIBP=89/56 mmhg, SpO2=94.0 %, Resp=15 B/min, Comment=nsr 02:30 PM LCA angiography performed in multiple views. csmith 02:30 PM Coronary Dominance: right csmith 02:30 PM NIBP STAT measurement started. 02:31 PM HR=98 bpm, NIBP=94/59 mmhg, SpO2=93 %, Resp=14 B/min 02:32 PM HR=99 bpm, NIBP=94/56 mmhg, SpO2=93 %, Resp=14 B/min 02:32 PM Lesion found in Mid LAD. Pre Stenosis: 95 Pre BRITTANEY Flow: 3: Complete and Brisk Flow/Perfusion csmith 02:32 PM Lesion found in Mid Circumflex. Pre Stenosis: 95 Pre BRITTANEY Flow: 3: Complete and Brisk Flow/Perfusion csmith 02:32 PM Catheter removed csmith 02:32 PM 5Fr Pigtail catheter inserted over the wire [facility] csmith 02:32 PM Catheter selectively placed in left ventricle csmith 02:33 PM Recorded Pressure: LV, HR=98, Condition=Condition 1 (Left Ventricle) LV 111/-6/7 02:33 PM Bolus angiogram of left Ventricle complete: 10 ml/sec for a total of 20 mls csmith 02:34 PM Recorded Pressure: LV, Ao, HR=96, Condition=Condition 1 (Left Ventricle) LV 113/-7/6, (Aorta) Ao 99/62/75 02:34 PM PCI Status Urgent csmith 02:34 PM Inflation device was opened. csmith 02:35 PM 6Fr CLS3.5 Runway guide catheter was used to cannulate the PCI vessel successfully. reused? No csmith 02:35 PM .014 [place] 180cm guide wire across target lesion- successful. reused? No to LAD lesion csmith 02:37 PM HR=91 bpm, GDYS=405/66 mmhg, SpO2=94.0 %, Resp=13 B/min, Comment=nsr 02:37 PM act drawn and running csmith 02:39 PM 2.0 mm x 12 mm Emerge Monorail balloon across target lesion- successful. reused? No to LAD lesion csmith 02:39 PM Time: 14:39 Aggrastat Bolus: 37.5 ml Intravenous Given by Merrick Ha RN Evans pump csmith 02:39 PM Time: 14:39 Aggrastat 5mg/100ml 6.75 ml/hr Intravenous Given by Merrick Ha RN Evans pump csmith 02:39 PM At 14:39 the ACT was 212 seconds. csmith 02:40 PM Balloon inflated @ 10 osbaldo for 20 seconds csmith 02:40 PM Time: 14:25 Patient comfortable and pain free: Yes csmith 02:40 PM Time: 14:25LOC: 4 = Oriented but drowsy csmith 02:41 PM Time: 14:40 Heparin 2000 units Intravenous Given by Merrick Ha RN Evans pump csmith 02:41 PM Balloon catheter removed intact. csmith 02:41 PM 2.5mm x 20mm Synergy drug-eluting stent across target lesion- successful Lot #[id number] csmith 02:42 PM HR=87 bpm, FEMN=081/67 mmhg, SpO2=95.0 %, Resp=14 B/min, Comment=nsr 02:43 PM Stent deployed @ 16 osbaldo for 26 seconds csmith 02:43 PM Stent balloon reinflated @ 14 osbaldo for 24 seconds csmith 02:44 PM Stent delivery system removed intact. csmith 02:45 PM 2.5 mm x 12mm NC Trek Rx balloon across target lesion- successful. reused? No csmith 02:46 PM Balloon inflated @ 18 osbaldo for 15 seconds csmith 02:47 PM Balloon inflated @ 18 osbaldo for 15 seconds csmith 02:47 PM HR=88 bpm, QMMS=513/69 mmhg, SpO2=96.0 %, Resp=14 B/min, Comment=nsr 02:47 PM Balloon catheter removed intact. csmith 02:48 PM 2.75mm x 24mm Synergy drug-eluting stent across target lesion- successful Lot #[id number] to mid LAD csmith 02:50 PM Stent deployed @ 18 osbaldo for 15 seconds csmith 02:51 PM Time: 14:51 Nitroglycerin 200 mcg Intracoronary Given by Jorge Winchester MD csmith 02:51 PM Stent delivery system removed intact. csmith 02:52 PM HR=93 bpm, NIBP=97/53 mmhg, SpO2=96.0 %, Resp=15 B/min, Comment=nsr 02:53 PM 2*12 balloon reinserted, advanced to circumflex csmith 02:54 PM Balloon inflated @ 10 osbaldo for 25 seconds csmith 02:55 PM Time: 14:40LOC: 4 = Oriented but drowsy csmith 02:55 PM Time: 14:40 Patient comfortable and pain free: Yes csmith 02:56 PM Time: 14:56 Nitroglycerin 200 mcg Intracoronary Given by Jorge Winchester MD csmith 02:57 PM HR=91 bpm, NIBP=97/54 mmhg, SpO2=95.0 %, Resp=14 B/min, Comment=nsr 02:58 PM Balloon inflated @ 14 osbaldo for 15 seconds csmith 02:58 PM Balloon inflated @ 14 osbaldo for 20 seconds csmith 02:59 PM Balloon inflated @ 14 osbaldo for 16 seconds csmith 03:00 PM Balloon inflated @ 14 osbaldo for 10 seconds csmith 03:02 PM HR=87 bpm, NIBP=98/61 mmhg, SpO2=94.0 %, Resp=13 B/min, Comment=nsr 03:02 PM Balloon inflated @ 14 osbaldo for 20 seconds csmith 03:03 PM Balloon catheter removed intact. csmith 03:03 PM 2.25mm x 38mm Synergy drug-eluting stent across target lesion- successful Lot #[id number] csmith 03:03 PM Stent deployed @ 18 osbaldo for 30 seconds csmith 03:04 PM Stent delivery system removed intact. csmith 03:05 PM Guide catheter removed intact. csmith 03:05 PM Balloon catheter removed intact. csmith 03:06 PM wire removed intact csmith 03:07 PM HR=83 bpm, AAJW=790/58 mmhg, SpO2=98.0 %, Resp=12 B/min, Comment=nsr 03:07 PM Time: 15:07 Brilinta 180 mg Orally Given by Merrick Ha RN crushed csmith 03:08 PM Procedure completed at 15:08 csmith 03:08 PM Sign out completed: Radiation Dose 623 mGy Fluoro Time: 9.2 Isovue 370 - 200ml contrast 169 ml given by Jorge Winchester MD, [facility]. Complications: NoneCardiac Rehab Consult needed: YesConfirmed administered medications: Yes csmith 03:08 PM Isovue 370 - 200ml,1 Bottle(s) used. csmith 03:08 PM Arterial sheath pulled, Vasc Band closure device used and was Successful S/N. csmith 03:08 PM 10 ml air in Vasc Band. csmith 03:08 PM Estimated Blood Loss: less than 20cc csmith 03:08 PM Post ECG NSR csmith 03:08 PM Post Blood Pressure 100/58 csmith 03:08 PM 15:08 Post Pulses Right radial 1+ csmith 03:09 PM Information taught Vasc Band and PCI csmith 03:09 PM Education needs Responsibilities of Patient in Care csmith 03:09 PM Learning barriers :None csmith 03:09 PM Education Methods Verbal csmith 03:09 PM Education evaluation Able to repeat information csmith 03:09 PM Site status No bleeding/hematoma - Rt Wrist as reported by Deanna Mccarthy RT at 15:09 csmith 03:09 PM Plavix, Effient or Brilinta given Yes csmith 03:09 PM Delay to floor No csmith 03:09 PM Family placed in consult room. csmith 03:10 PM Time: 14:55 Patient comfortable and pain free: Yes csmith 03:10 PM Time: 14:55LOC: 5 = Fully awake and oriented or at pre-proc level csmith 03:12 PM NIBP=90/63 mmhg, Comment=nsr 03:16 PM Patient out of room: 15:15 csmith Complications Complication None Hemodynamics Pressures Site Systolic/A Wave Diastolic/V Wave Mean LV 111 -6 7 LV 113 -7 6 AO 99 62 75 Post Procedure Information Blood Pressure: 100/58 mmHg Rhythm: NSR Post procedural instructions were given Closure Device Time Device Success/Fail Mechanical Compression Successful Site Checks Time Location Status Staff Sheath In? Note 03:09 PM Rt Wrist No bleeding/hematoma Deanna Mccarthy RT Pulses Time Site Pre-Procedure Post-Procedure Note 01/28/2017 1:51:00 PM Bilateral DP 2+ 01/28/2017 1:52:00 PM Bilateral radial 2+ 3:08:00 PM Right radial 1+ Updated by Chaz Martinez RN on 01/28/2017 3:16:06 PM electronically signed on 01/28/2017 3:16:28 PM with status of Final
--- NOTE | 2017-01-28 18:52 | Internal Med Progress Note ---
Date of Encounter: 01/28/17 Time of Encounter: 11:00 - Assessment and plan (1) Elevated troponin Current Visit: Yes Status: Acute Assessment and plan: -Patient with continued elevated cardiac biomarkers. -Cardiology consulted with recommendations for cardiac catheterization today (2) Dehydration Current Visit: Yes Status: Acute Assessment and plan: -Resolved with IV fluids; back secondary to gastroenteritis with nausea and vomiting/diarrhea. (3) Nausea and vomiting Current Visit: Yes Status: Acute Assessment and plan: -Resolved; supportive care Qualifiers: Vomiting type: unspecified Vomiting Intractability: unspecified Qualified Code(s): R11.2 - Nausea with vomiting, unspecified (4) Diarrhea Current Visit: Yes Status: Acute Assessment and plan: -Resolved; suspect secondary to gastroenteritis. Qualifiers: Diarrhea type: unspecified type Qualified Code(s): R19.7 - Diarrhea, unspecified (5) SAM (acute kidney injury) Current Visit: Yes Status: Acute Assessment and plan: -Resolved with IV fluids. (6) DVT prophylaxis Current Visit: Yes Status: Acute Assessment and plan: -On heparin drip - Subjective Interval history: Patient's acute kidney injury has resolved but continues to have elevated cardiac biomarkers. Plans for a cardiac catheterization today. - Constitutional Vitals: Temp Pulse Resp BP Pulse Ox 97.4 F L 87 16 106/69 99 01/28/17 15:44 01/28/17 18:30 01/28/17 15:45 01/28/17 18:30 01/28/17 17:18 General appearance: Present: A&O X 3 - Respiratory Respiratory exam: Present: CTAB. Absent: accessory muscle use, rales, rhonchi, wheezes - Cardiovascular Cardiovascular exam: Present: RRR, +S1, +S2. Absent: diastolic murmur, gallop, rubs, systolic murmur Internal Medicine: Result - Labs CBC & Chem 7: 01/28/17 08:10 01/28/17 08:10 Labs: Short CBC 01/28/17 Range/Units 08:10 WBC 5.6 (4.3-11.1) K/mcL Hgb 12.6 L (12.9-16.9) g/dL Hct 38.1 (37.5-50.1) % Plt Count 184 (140-400) K/mcL Neutrophils # 2.8 (1.6-8.9) K/mcL BMP 01/28/17 08:10 Sodium 134 L Potassium 3.9 Chloride 103 Carbon Dioxide 26 BUN 13 Creatinine 1.05 Glucose 151 H Calcium 9.0 - ABG Interpretation ABG results: PT/INR, D-dimer PT 11.3 Seconds (9.4-12.1) 01/26/17 17:32 Consult Discharge Plan - Plan Referrals: Beth Schulz MD [Primary Care Provider] -
[2017-01-28] MEDS: *HR* Ticagrelor 90 MG TABLET PO SCH (20:35)
--- NOTE | 2017-01-29 09:06 | Cardiology Progress Note ---
Date of Encounter: 01/29/17 Time of Encounter: 08:30 Assessment and Plan (1) NSTEMI (non-ST elevated myocardial infarction) Current Visit: Yes Status: Acute Patient presented as NSTEMI s/p PCI. Angina symptoms--chest burning/ indigestion. [facility] 01/28/17: successful PTCA/RENA to mLCx and mLAD, EF preserved. No recurrent symptoms since PCI. Cardiac rehab consulted, recommend GDMT including DAPT (asa + brilinta), statin , and betablocker. Add low dose betablocker and statin to medications today. 30-day supply of brilinta to be delivered to pt. room prior to discharge. Post PCI discharge instructions discussed including the importance of uninterrupted DAPT for at least 1 year--pt./ verbalized understanding. Will arrange f/u with [facility] in 5-7 days. Cardiology will sign-off, please call with questions. Discussion w patient/family: The assessment and plan as outlined above was discussed with the patient and/or family members who expressed understanding and agreement. All questions were answered. Thank you for involving us in the care of your patient. Please call with any questions. The patient was discussed and reviewed with Dr. Hilliard who agrees with plan as stated above. Subjective Principal diagnosis: NSTEMI Interval history: Patient seen and examined. No complaints this morning upon exam. Denies chest pain, burning, or discomfort. No issues with right radial cath site. Objective Vital Signs, Last 4 Hours Temp Pulse Resp BP Pulse Ox 01/29/17 07:20 97.8 F 80 18 121/73 97 General: Conversant, No Apparent Distress HEENT: Atraumatic, Normocephaly, Mucus Membranes Moist Neck: No JVD Cardiac: Reg Rate and Rhythm, Normal S1 and S2 Lungs: Normal Breath Sounds Neuro: Alert and responsive Abdomen: Soft Skin: No rashes noted on visualized skin Musculoskeletal: No Chest Wall Tenderness Extremities: No Edema, Normal Pulses Other: Right radial cath site: no hematoma, oozing, or bleeding. +2 pulses, brisk cap refill. Results 01/28/17 08:10 01/28/17 08:10 Active Medications Amitriptyline HCl (Elavil) 25 mg PO BID YULISA Stop: 07/29/17 21:01 Last Admin: 01/28/17 20:35 Dose: 25 mg Aspirin (Aspirin Ec) 81 mg PO DAILY COUNT INCLUDES THE [facility] Stop: 07/29/17 14:46 Last Admin: 01/28/17 07:29 Dose: 81 mg Atorvastatin Calcium (Lipitor) 40 mg PO HS COUNT INCLUDES THE [facility] Stop: 07/31/17 21:01 Dextrose/Water (Dextrose 50% (Syg)) 25 ml IVP AD PRN PRN Reason: Hypoglycemia Stop: 07/28/17 12:02 Diphenhydramine HCl (Benadryl) 25 mg PO HS PRN PRN Reason: Insomnia Stop: 07/30/17 15:11 Docusate Sodium (Colace) 100 mg PO BID PRN PRN Reason: Constipation Stop: 07/28/17 11:58 Glucagon (Glucagen) 1 mg IM ONCE PRN PRN Reason: Hypoglycemia Stop: 07/28/17 12:02 Glucose (Gluctose) 15 gm PO ONCE PRN PRN Reason: Hypoglycemia Stop: 07/28/17 12:02 Glucose (Gluctose) 30 gm PO ONCE PRN PRN Reason: Hypoglycemia Stop: 07/28/17 12:02 Dextrose (Dextrose 5%) 1,000 mls @ 100 mls/hr IVC .Q10H PRN PRN Reason: HYPOGLYCEMIA Stop: 07/28/17 12:02 Insulin Human Lispro (Humalog) 0 units SQ TIDAC COUNT INCLUDES THE [facility] PRN Reason: Protocol Stop: 07/28/17 16:31 Last Admin: 01/28/17 16:18 Dose: Not Given Insulin Human Lispro (Humalog) 0 units SQ HS COUNT INCLUDES THE [facility] PRN Reason: Protocol Stop: 07/28/17 21:01 Last Admin: 01/28/17 22:53 Dose: Not Given Levothyroxine Sodium (Synthroid) 75 mcg PO 0630 COUNT INCLUDES THE [facility] Stop: 07/30/17 06:31 Last Admin: 01/29/17 05:51 Dose: 75 mcg Lisinopril (Zestril) 10 mg PO DAILY YULISA PRN Reason: Protocol Stop: 07/30/17 09:01 Last Admin: 01/28/17 07:29 Dose: 10 mg Metoprolol Succinate (Toprol Xl) 12.5 mg PO DAILY COUNT INCLUDES THE [facility] Stop: 07/31/17 09:16 Morphine Sulfate (Morphine Sulfate) 2 mg IVP Q4HR PRN PRN Reason: Severe Pain (7-10) Stop: 07/28/17 11:58 Naloxone HCl (Narcan) 0.4 mg IVP Q2MIN PRN PRN Reason: Opioid Reversal Stop: 07/28/17 11:58 Ondansetron HCl (Zofran) 4 mg IVP Q8HR PRN PRN Reason: Nausea And Vomiting Stop: 07/28/17 11:58 Ticagrelor (Brilinta) 90 mg PO BID COUNT INCLUDES THE [facility] Stop: 07/30/17 21:01 Last Admin: 01/28/17 20:35 Dose: 90 mg - Imaging and Cardiology Echo: report reviewed Cardiac cath: report reviewed Other Results: 12 hour tele: avg HR=81 SR. No events noted. - EKG Interpretation EKG results cardiology: personally reviewed Consult Discharge Plan - Plan Referrals: Beth Schulz MD [Primary Care Provider] - Prescriptions: Ticagrelor [Brilinta] 90 mg PO BID #60 tablet
[2017-01-29] MEDS ORDERED: Metoprolol XL (24 HR) Succ 25 MG TAB.ER.24H PO SCH (09:15)
[2017-01-29] MEDS: *HR* Ticagrelor 90 MG TABLET PO SCH (09:19)
[2017-01-29] MEDS: Aspirin Enteric Coated 81 MG Tablet PO SCH (09:19)
[2017-01-29] MEDS: Insulin LISPRO 300 UNITS/3 ML VIAL SQ SCH ×3 (10:19→17:32)
--- NOTE | 2017-01-29 18:44 | Discharge Summary ---
Date of Encounter: 01/29/17 Time of Encounter: 11:00 - Discharge Diagnosis (1) Elevated troponin Priority: Primary Status: Acute (2) Dehydration Priority: Secondary Status: Acute (3) Nausea and vomiting Priority: Secondary Status: Acute Qualifiers: Vomiting type: unspecified Vomiting Intractability: unspecified Qualified Code(s): R11.2 - Nausea with vomiting, unspecified (4) Diarrhea Priority: Secondary Status: Acute Qualifiers: Diarrhea type: unspecified type Qualified Code(s): R19.7 - Diarrhea, unspecified (5) SAM (acute kidney injury) Priority: Secondary Status: Acute - Discharge Medications Prescriptions: Atorvastatin [Lipitor] 40 mg PO HS #30 tablet Metoprolol XL (24 HR) Succ [Toprol Xl] 12.5 mg PO DAILY #30 tab.er.24h Ticagrelor [Brilinta] 90 mg PO BID #60 tablet Home Medications: Amitriptyline [Elavil] 25 mg PO BID 01/26/17 [History] Aspirin [Lo-Dose Aspirin EC] 81 mg PO DAILY 01/26/17 [History] Dapagliflozin Propanediol [Farxiga] 5 mg PO DAILY 01/26/17 [History] Levothyroxine Sodium [Levoxyl] 75 mcg PO DAILY 01/26/17 [History] Linagliptin [Tradjenta] 5 mg PO DAILY 01/26/17 [History] Lisinopril [Zestril] 10 mg PO DAILY 01/26/17 [History] Lutein [Natural Lutein] 20 mg PO DAILY 01/26/17 [History] Metformin HCl [Glucophage] 1,000 mg PO BID 01/26/17 [History] Multivitamin [Multivitamins] 1 cap PO DAILY 01/26/17 [History] Atorvastatin [Lipitor] 40 mg PO HS #30 tablet 01/29/17 [Rx] Metoprolol XL (24 HR) Succ [Toprol Xl] 12.5 mg PO DAILY #30 tab.er.24h 01/29/17 [Rx] Ticagrelor [Brilinta] 90 mg PO BID #60 tablet 01/29/17 [Rx] Allergies/Adverse Reactions: 3 Allergy/AdvReac Type Severity Reaction Status Date / Time Penicillins Allergy Rash Verified 01/26/17 12:03 Procedures/tests Complete & Pending: Procedures Performed prior 72 hours Category Date Time Status CL 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 01/27/17 15:55 Ordered ECG 12 lead ECG [ECG] Routine Y 01/28/17 15:09 Ordered Date of admission: 01/26/17 17:26 Primary care physician: Beth Schulz Consults: 01/27/17 09:56 Consult to Cardiology [CONS] Routine Comment: Consulting Provider: Cardiology Bonny Reason for Consult: elevated trops Call Completed: No 01/29/17 09:06 Consult to Cardiac Rehabilitation-Phase1 [CONS] Routine Comment: Reason for Consult: NSTEMI Call Completed: No - Patient Status Disposition: Home, Self-Care Condition: Fair - Discharge Instructions Instructions: Ticagrelor (By mouth), Myocardial Infarction (DC), Left Heart Catheterization (DC), Right Heart Catheterization (DC), Coronary Intravascular Stent Placement (DC), Diabetes Mellitus Type 2 in Adults (DC), Coronary Intravascular Stent Placement, Call Center Representative (GEN) Follow Up With: Beth Schulz MD [Primary Care Provider] - 02/05/17 9:30 am Additional Instructions: RISK FACTORS: STOP SMOKING: If you smoke, STOP. Smoking or tobacco use significantly increases your risk of heart disease because nicotine causes the arteries to narrow or constrict. It also causes fats to stick to the artery. Your chances of having a heart attack are greatly increased if you continue to smoke. For more information, call the education line for smoking cessation 3-373-[id number] EAT A LOW FAT/CHOLESTEROL/SODIUM DIET: This diet may help reduce your chances of having a heart attack. LIFTING: With affected extremity: Avoid bending, pushing off and lifting more than 2 pounds for 24 hours The following 48 hours, avoid lifting anything more than 5 pounds Avoid strenuous activity or repetitive motions ACTIVITY: You may walk or climb stairs as tolerated You can resume sexual activity as tolerated In general, you are encouraged to engage in a minimum of 30 minutes or more of moderate intensity physical activity, such as brisk walking, daily or at least 3 -4 times weekly BATHING Do not submerge the site into water (bath tub, hot tub, swimming pool, dishes) for 1 week. This can be a source for infection into the blood stream. You may shower after 24 hours SITE CARE: After 24 hours, you may remove the dressing and leave the site open to air. Keep the site clean and dry. Clean gently and pat dry. You can expect bruising and tenderness that gradually resolve within a week or two. Return to work as instructed per your physician Resume driving as instructed per physician Keep all scheduled follow up appointments Resume medications as instructed IMPORTANT: If prescribed a Platelet Aggregation Inhibitor such as, Plavix, Brilinta or Effient: Duration of therapy is minimum one year These medications are often used in combination with Aspirin in prevention of future heart attacks Never discontinue unless consult with your Clinical Rehab Specialist STROKE (CVA) Risk factors for a stroke are: Age, cigarette smoking, diabetes, excessive alcohol consumption, family history, high blood pressure, overweight, physical inactivity, prior stroke, heart attack, diagnosis of carotid artery stenosis or other artery disease. Warning signs: Sudden numbness or weakness of the face, arm or leg; especially on one side of the body, sudden confusion, trouble speaking or understanding, sudden trouble seeing in one or both eyes, sudden trouble walking, dizziness, loss of balance or coordination, sudden severe headache with no cause. Call 911 or go to the Emergency Room. CONGESTIVE HEART FAILURE: If you have been diagnosed with Congestive Heart Failure (CHF) and your symptoms return, make an appointment with your physician Weigh yourself daily. Notify your physician if you have a weight gain of two or more pounds in one day or five or more pounds in one week. If you experience any difficulty breathing, please call 911 BLEEDING: Although the risk of bleeding is minimal, it can happen. If you have any bleeding from the site, apply firm pressure above the puncture site for 10-15 minutes. If the bleeding does not stop, continue manual pressure and call 911 Contact [facility] ( ) if: You develop a fever greater than 101 degrees Fahrenheit Your site becomes reddened or has any drainage You have an increase in pain or burning at the site or if a large knot forms at the site. If you experience chest pain, shortness of breath, dizziness, or extreme tiredness, stop the activity and rest. Please notify [facility] office if you experience any of these symptoms and they are not relieved by rest please call 911! Hospital course: Patient is an 81-year-old male with past medical history significant for diabetes and CAD who presented to the ER on 01/26/17 with nausea/vomiting/ diarrhea in addition to generalized weakness. Patient reported a 4 day history of nausea and vomiting diarrhea with the generalized weakness with mild abdominal cramping and decided to come to the ER for evaluation. In the ER patient was found to have elevated cardiac enzymes was admitted for ACS rule out in addition to supportive care for gastroenteritis. During his hospital stay his symptoms for gastroenteritis resolved. Cardiology was consulted with recommendation for cardiac heart catheterization and successful PTCA/RENA to mLCx and mLAD with EF preserved. Patient will be discharged to follow up with cardiac rehabilitation and to continue with DAPT (asa + brilinta), statin, and betablocker. Follow-up arranged with [facility] in 5-7 days. - Time Spent with Patient Total time spent providing and/or coordinating discharge services: Less than 30 minutes - Constitutional Vitals: Temp Pulse Resp BP Pulse Ox 97.9 F 77 18 109/68 97 01/29/17 16:00 01/29/17 16:00 01/29/17 16:00 01/29/17 16:00 01/29/17 16:00 General appearance: Present: A&O X 3 - Cardiovascular Cardiovascular exam: Present: RRR, +S1, +S2. Absent: diastolic murmur, gallop, rubs, systolic murmur - GI/Abdominal GI/Abdominal exam: Present: normal bowel sounds, soft, no peritoneal signs. Absent: distended, tenderness - VTE Documentation of Mechanical Device: Graduated compression elastic hosiery
[2017-01-29 20:31] VITALS: BP 112/72
== END 2017-01-29 20:00 | disposition home or self-care (01) ==
LOC: 2NENU 09:14 → EMEROO 09:14 → SUATTDRO 17:26 → 2NENU 17:50
PROVIDERS: ADMIT Internal Medicine Cardiovascular Disease; ATTEND Hospitalist

== ENCOUNTER 2017-05-11 03:40 | Observation (INO) ==
[2017-05-11] MEDS ORDERED: 0.9 % Sodium Chloride 1,000 ML IVC ONE (03:47)
--- NOTE | 2017-05-11 04:15 | Emergency Department Note ---
Disposition Clinical Impression: SAM (acute kidney injury) Sepsis Qualifiers: Sepsis type: sepsis due to unspecified organism Qualified Code(s): A41.9 - Sepsis, unspecified organism Disposition: Admitted As Inpatient Condition: Fair Referrals: Beth Schulz MD [Primary Care Provider] - Forms: ED Satisfaction Letter Time of Disposition: 06:34 General Adult HPI - General Chief complaint: ED Weakness Stated complaint: Weakness Time Seen by Provider: 05/11/17 03:42 Source: patient, EMS Mode of arrival: EMS Limitations: no limitations Nursing Notes Reviewed: Yes Vital Signs Reviewed: Yes - History of Present Illness HPI Narrative: 81-year-old male with significant past medical history of bladder cancer approximately 7 years ago and does self cathetering at home presenting to the emergency department with chief complaint of weakness. Patient was seen here on Thursday and diagnosed with urinary tract infection and given ciprofloxacin. Patient states he has been unable to take the medication because he has been nauseous. Today he started feeling not well and overall weak. He denies any chest pain or shortness of breath. Denies any abdominal pain. Does disclose nausea. Upon arrival he is febrile at 100.8 and tachycardic. Patient denies any known sick contacts. Denies any cough. Pain Scale: 0 - Related Data Home Medications Medication Instructions Recorded Confirmed Amitriptyline [Elavil] 25 mg PO BID 01/26/17 01/26/17 Aspirin [Lo-Dose Aspirin EC] 81 mg PO DAILY 01/26/17 01/26/17 Dapagliflozin Propanediol [Farxiga] 5 mg PO DAILY 01/26/17 01/26/17 Levothyroxine Sodium [Levoxyl] 75 mcg PO DAILY 01/26/17 01/26/17 Linagliptin [Tradjenta] 5 mg PO DAILY 01/26/17 01/26/17 Lisinopril [Zestril] 10 mg PO DAILY 01/26/17 01/26/17 Lutein [Natural Lutein] 20 mg PO DAILY 01/26/17 01/26/17 Metformin HCl [Glucophage] 1,000 mg PO BID 01/26/17 01/26/17 Multivitamin [Multivitamins] 1 cap PO DAILY 01/26/17 01/26/17 Previous Rx's Medication Instructions Recorded Atorvastatin [Lipitor] 40 mg PO HS #30 tablet 01/29/17 Metoprolol XL (24 HR) Succ [Toprol 12.5 mg PO DAILY #30 tab.er.24h 01/29/17 Xl] Ticagrelor [Brilinta] 90 mg PO BID #60 tablet 01/29/17 Ciprofloxacin [Cipro] 500 mg PO BID #20 tablet 05/09/17 Allergies Allergy/AdvReac Type Severity Reaction Status Date / Time Penicillins Allergy Rash Verified 01/26/17 12:03 All systems ED: reviewed and negative except as stated. Gastrointestinal: Reports: nausea Neurological: Reports: weakness Past Medical History - Past Medical History Attestation: Yes The following information was validated with the patient. Medical history: Reports: cancer, diabetes, myocardial infarction Surgical history: Reports: cataract, cholecystectomy, orthopedic, other Psychiatric history: Reports: no psych history - Social History Smoking Status: Never smoker Smokeless Tobacco Status: No Alcohol use: Reports: none Drug use: Reports: none Physical Exam - General Limitations: no limitations General appearance: alert, in no apparent distress - Head Head exam: atraumatic, normocephalic, normal inspection - Eye Eye exam: Present: normal appearance. Absent: scleral icterus, conjunctival injection - ENT ENT exam: normal exam, mucous membranes moist - Neck Neck exam: Present: normal inspection, full ROM. Absent: tenderness, meningismus - Chest Chest inspection: Present: normal inspection, symmetric chest wall rise. Absent : tenderness, rash - Respiratory Respiratory exam: Present: normal lung sounds bilaterally. Absent: respiratory distress, wheezes - Cardiovascular Cardiovascular exam: Present: normal rhythm, tachycardia, normal heart sounds - Abdominal Exam Abdominal exam: Present: soft, Non-Tender. Absent: distention, guarding, rebound - Extremities Exam Extremities exam: Present: normal inspection, full ROM - Neurological Exam Neurological exam: Present: alert, oriented X3 - Psychiatric Psychiatric exam: Present: normal affect, normal mood - Skin Skin exam: Present: warm, intact Course Course Narrative: 81-year-old male presenting to the emergency department for weakness. He is febrile and tachycardic upon presentation. Concern for urosepsis at this time. He is alert and oriented 3 in the room. Otherwise vital signs stable. He is not hypotensive. He is not tachypneic. We will perform a sepsis workup including blood cultures, urine analysis, basic laboratory analysis come EKG and chest x-ray. We will hold antibiotics until determine source of infection. We will start provide the patient with fluids at this time. Patient does physician most likely admission for sepsis. Patient agrees with this plan. - Reevaluation(s) Reevaluation #1: Patient's laboratory analysis shows elevated lactic acid at 3.1. Otherwise labs unremarkable. Urine analysis shows multiple red blood cells and white blood cells but it is a unclean specimen. We will send this for culture. We also obtain a CT of the abdomen and pelvis. This was completed and was unchanged from previous. No acute abnormality. Concern for urosepsis. We will start Levaquin and admit the patient at this time. Patient no longer tachycardic. He is alert and oriented 3 and room stable vital signs. I spoke with the hospitalist on-call Dr. River who agrees to accept the patient at this time Vital Signs Temperature 100.8 F H 05/11/17 03:44 Pulse Rate 123 05/11/17 03:44 Respiratory Rate 18 05/11/17 03:44 Blood Pressure 114/84 05/11/17 03:44 O2 Sat by Pulse Oximetry 95 05/11/17 03:44 Temperature 100.8 F H 05/11/17 03:54 Pulse Rate 116 05/11/17 05:04 Respiratory Rate 22 05/11/17 05:04 Blood Pressure 109/54 05/11/17 05:04 O2 Sat by Pulse Oximetry 97 05/11/17 05:04 Oxygen Delivery Oxygen Delivery Room Air Medical Decision Making - Medical Records Medical records reviewed: Yes I reviewed the patient's medical records. - Lab Data Lab results reviewed: Yes I reviewed the patient's lab results. Result diagrams: 05/11/17 04:00 05/11/17 04:00 Lab Results 05/11/17 05/11/17 05/11/17 Range/Units 04:00 04:00 04:00 WBC 5.8 (4.3-11.1) K/mcL RBC 4.38 (4.19-5.50) M/mcL Hgb 13.0 (12.9-16.9) g/dL Hct 38.3 (37.5-50.1) % MCV 87.4 (83.0-100.0) fL MCH 29.7 (28.0-33.3) pg MCHC 33.9 (31.6-35.5) g/dL RDW 13.5 (11.5-14.5) % Plt Count 160 (140-400) K/mcL MPV 9.3 L (9.4-12.4) fL Immature Gran % 0.3 (0-4) % Seg Neutrophils % 83.1 % Lymphocytes % 9.4 % Monocytes % 6.7 % Eosinophils % 0.2 % Basophils % 0.3 % Neutrophils # 4.8 (1.6-8.9) K/mcL Lymphocytes # 0.6 (0.6-4.6) K/mcL Monocytes # 0.4 (0.0-1.3) K/mcL Eosinophils # 0.0 (0.0-0.6) K/mcL Basophils # 0.0 (0.0-0.2) K/mcL PT 13.7 H (9.4-12.1) Seconds INR 1.3 APTT 26.1 (26.0-36.0) Seconds Sodium 135 L (136-145) mEq/L Potassium 3.8 (3.5-5.1) mEq/L Chloride 102 (98-107) mEq/L Carbon Dioxide 19 L (23-29) mEq/L BUN 21 (8-23) mg/dL Creatinine 1.36 H (0.70-1.30) mg/dL Est GFR ( Amer) > 60 (> 60) Est GFR (Non-Af Amer) 50 L (> 60) BUN/Creatinine Ratio 15 (6-26) Glucose 247 H (70-105) mg/dL Calculated Osmolality 291 (280-300) Lactic Acid (0.5-2.2) mmol/L Calcium 9.0 (8.6-10.3) mg/dL Total Bilirubin 2.3 H (0.3-1.0) mg/dL Direct Bilirubin 0.5 H (0.0-0.2) mg/dL Indirect Bilirubin 1.8 H (0.0-1.2) mg/dL AST 30 (13-39) Units/L ALT 24 (7-52) Units/L Alkaline Phosphatase 71 (34-104) Units/L Troponin I < 0.03 (< 0.04) ng/mL Serum Total Protein 6.8 (6.4-8.9) g/dL Albumin 3.9 (3.5-5.7) g/dL Globulin 2.9 (2.4-3.5) g/dL Albumin/Globulin Ratio 1.3 (1.1-2.2) Urine Color (Yellow) Urine Clarity (Clear) Urine pH (5.0-8.0) pH Units Ur Specific [place] (1.010-1.025) Urine Protein (Neg-Trace) mg/dL Urine Glucose (UA) (Normal) mg/dL Urine Ketones (Negative) mg/dL Urine Blood (Negative) Urine Nitrite (Negative) Urine Bilirubin (Negative) Urine Urobilinogen (Normal) mg/dL Ur Leukocyte Esterase (Negative) Urine Microscopic RBC (0-3) per hpf Urine Microscopic WBC (0-3) per hpf Ur Squamous Epith Cells (None-Few) per lpf Urine Bacteria (None-Few) per hpf Hyaline Casts (None-Few) per lpf Ur Culture Indicated? (NO) 05/11/17 05/11/17 Range/Units 04:00 04:16 WBC (4.3-11.1) K/mcL RBC (4.19-5.50) M/mcL Hgb (12.9-16.9) g/dL Hct (37.5-50.1) % MCV (83.0-100.0) fL MCH (28.0-33.3) pg MCHC (31.6-35.5) g/dL RDW (11.5-14.5) % Plt Count (140-400) K/mcL MPV (9.4-12.4) fL Immature Gran % (0-4) % Seg Neutrophils % % Lymphocytes % % Monocytes % % Eosinophils % % Basophils % % Neutrophils # (1.6-8.9) K/mcL Lymphocytes # (0.6-4.6) K/mcL Monocytes # (0.0-1.3) K/mcL Eosinophils # (0.0-0.6) K/mcL Basophils # (0.0-0.2) K/mcL PT (9.4-12.1) Seconds INR APTT (26.0-36.0) Seconds Sodium (136-145) mEq/L Potassium (3.5-5.1) mEq/L Chloride (98-107) mEq/L Carbon Dioxide (23-29) mEq/L BUN (8-23) mg/dL Creatinine (0.70-1.30) mg/dL Est GFR ( Amer) (> 60) Est GFR (Non-Af Amer) (> 60) BUN/Creatinine Ratio (6-26) Glucose (70-105) mg/dL Calculated Osmolality (280-300) Lactic Acid 3.1 H (0.5-2.2) mmol/L Calcium (8.6-10.3) mg/dL Total Bilirubin (0.3-1.0) mg/dL Direct Bilirubin (0.0-0.2) mg/dL Indirect Bilirubin (0.0-1.2) mg/dL AST (13-39) Units/L ALT (7-52) Units/L Alkaline Phosphatase (34-104) Units/L Troponin I (< 0.04) ng/mL Serum Total Protein (6.4-8.9) g/dL Albumin (3.5-5.7) g/dL Globulin (2.4-3.5) g/dL Albumin/Globulin Ratio (1.1-2.2) Urine Color Red A (Yellow) Urine Clarity Cloudy A (Clear) Urine pH 5.0 (5.0-8.0) pH Units Ur Specific [place] > 1.030 H (1.010-1.025) Urine Protein Trace (Neg-Trace) mg/dL Urine Glucose (UA) >=1000 H (Normal) mg/dL Urine Ketones 15 H (Negative) mg/dL Urine Blood Large H (Negative) Urine Nitrite Negative (Negative) Urine Bilirubin Negative (Negative) Urine Urobilinogen Normal (Normal) mg/dL Ur Leukocyte Esterase Small H (Negative) Urine Microscopic RBC TNTC H (0-3) per hpf Urine Microscopic WBC 50-100 H (0-3) per hpf Ur Squamous Epith Cells Many H (None-Few) per lpf Urine Bacteria None Seen (None-Few) per hpf Hyaline Casts None Seen (None-Few) per lpf Ur Culture Indicated? NO. (NO) - Radiology Data Radiology results reviewed: Yes I reviewed the patient's radiology results. Chest X-Ray 05/11/17 03:48 IMPRESSION: Negative portable chest. D/ / Toni Perry MD / Toni Perry MD Interpreting Provider: Toni Perry MD Abdomen/Pelvis CT 05/11/17 04:56 IMPRESSION: 1. Diverticulosis without scan evidence for diverticulitis. 2. Asymmetric bladder wall thickening again seen, stable. Gas in the urinary bladder may indicate infection if there has not been recent catheter placement. D/ / Toni Perry MD / Toni Perry MD Interpreting Provider: Toni Perry MD - EKG Data EKG #1 EKG attestation: Yes I reviewed and interpreted this EKG. EKG results narrative: Sinus tachycardia. 119 bpm. QRS 94, QTC 432. No signs of acute ST segment elevation or ischemia. Compared to previous EKG completed on 01/26/2017 no significant changes.
[2017-05-11 04:33] LABS: Basophils % 0.3 %; Eosinophils % 0.2 %; Hematocrit 38.3 % (37.5-50.1); Immature Granulocytes % 0.3 % (0-4); Lymphocytes # 0.6 K/mcL (0.6-4.6); Lymphocytes % 9.4 %; Mean Corpuscular HGB Conc 33.9 g/dL (31.6-35.5); Mean Corpuscular Hemoglobin 29.7 pg (28.0-33.3); Mean Corpuscular Volume 87.4 fL (83.0-100.0); Mean Platelet Volume 9.3 fL (9.4-12.4); Monocytes # 0.4 K/mcL (0.0-1.3); Monocytes % 6.7 %; Neutrophils # 4.8 K/mcL (1.6-8.9); Platelet Count 160 K/mcL (140-400); Red Blood Count 4.38 M/mcL (4.19-5.50); Red Cell Distribution Width 13.5 % (11.5-14.5); Segmented Neutrophils % 83.1 %
[2017-05-11 04:38] LABS: Bilirubin,Urine Negative (Negative); Blood,Urine Large (Negative); Clarity,Urine Cloudy (Clear); Color,Urine Red (Yellow); Glucose,Urine (UA) >=1000 mg/dL (Normal); Ketones,Urine 15 mg/dL (Negative); Leukocyte Esterase,Urine Small (Negative); Nitrite,Urine Negative (Negative); Protein,Urine Trace mg/dL (Neg-Trace); Specific Gravity,Urine > 1.030 (1.010-1.025); Urobilinogen,Urine Normal (Normal)
[2017-05-11 04:41] LABS: Bacteria,Urine None Seen per hpf (None-Few); Hyaline Casts,Urine None Seen per lpf (None-Few); RBC,Urine TNTC per hpf (0-3); Squamous Epithelial Cell,Urine Many per lpf (None-Few); WBC,Urine 50-100 per hpf (0-3)
[2017-05-11 04:48] LABS: INR 1.3; Prothrombin Time 13.7 Seconds (9.4-12.1)
[2017-05-11 04:51] LABS: Activated Partial Thrombo Time 26.1 Seconds (26.0-36.0)
[2017-05-11 04:53] LABS: Alanine Aminotransferase 24 Units/L (7-52); Albumin 3.9 g/dL (3.5-5.7); Albumin/Globulin Ratio 1.3 (1.1-2.2); Alkaline Phosphatase 71 Units/L (34-104); Aspartate Amino Transferase 30 Units/L (13-39); BUN/Creatinine Ratio 15 (6-26); Bilirubin,Direct 0.5 mg/dL (0.0-0.2); Bilirubin,Indirect 1.8 mg/dL (0.0-1.2); Bilirubin,Total 2.3 mg/dL (0.3-1.0); Blood Urea Nitrogen 21 mg/dL (8-23); Carbon Dioxide 19 mEq/L (23-29); Chloride 102 mEq/L (98-107); Globulin 2.9 g/dL (2.4-3.5); Glucose 247 mg/dL (70-105); Osmolality,Calculated 291 (280-300); Potassium 3.8 mEq/L (3.5-5.1); Sodium 135 mEq/L (136-145); Total Protein 6.8 g/dL (6.4-8.9); Troponin I < 0.03 ng/mL (< 0.04); eGFR For African Americans > 60 (> 60); eGFR For Non-African Americans 50 (> 60)
[2017-05-11] MEDS ORDERED: Levofloxacin 750 MG/150 ML 750 MG/150 ML BAG IVPB ONE (05:58)
[2017-05-11] MEDS ORDERED: Ondansetron 4 MG/2 ML VIAL IVP ONE (06:09)
[2017-05-11] MEDS ORDERED: Ondansetron 4 MG/2 ML VIAL ONE (06:11)
--- NOTE | 2017-05-11 06:34 | Emergency Department Note ---
Disposition Clinical Impression: SAM (acute kidney injury) Sepsis Qualifiers: Sepsis type: sepsis due to unspecified organism Qualified Code(s): A41.9 - Sepsis, unspecified organism Disposition: Admitted As Inpatient Condition: Fair Referrals: Beth Schulz MD [Primary Care Provider] - Forms: ED Satisfaction Letter General Adult HPI - General Chief complaint: ED Weakness Stated complaint: Weakness Time Seen by Provider: 05/11/17 03:42 Source: patient, EMS Mode of arrival: EMS Limitations: no limitations Nursing Notes Reviewed: Yes Vital Signs Reviewed: Yes - History of Present Illness Pain Scale: 0 - Related Data Home Medications Medication Instructions Recorded Confirmed Amitriptyline [Elavil] 25 mg PO BID 01/26/17 01/26/17 Aspirin [Lo-Dose Aspirin EC] 81 mg PO DAILY 01/26/17 01/26/17 Dapagliflozin Propanediol [Farxiga] 5 mg PO DAILY 01/26/17 01/26/17 Levothyroxine Sodium [Levoxyl] 75 mcg PO DAILY 01/26/17 01/26/17 Linagliptin [Tradjenta] 5 mg PO DAILY 01/26/17 01/26/17 Lisinopril [Zestril] 10 mg PO DAILY 01/26/17 01/26/17 Lutein [Natural Lutein] 20 mg PO DAILY 01/26/17 01/26/17 Metformin HCl [Glucophage] 1,000 mg PO BID 01/26/17 01/26/17 Multivitamin [Multivitamins] 1 cap PO DAILY 01/26/17 01/26/17 Previous Rx's Medication Instructions Recorded Atorvastatin [Lipitor] 40 mg PO HS #30 tablet 01/29/17 Metoprolol XL (24 HR) Succ [Toprol 12.5 mg PO DAILY #30 tab.er.24h 01/29/17 Xl] Ticagrelor [Brilinta] 90 mg PO BID #60 tablet 01/29/17 Ciprofloxacin [Cipro] 500 mg PO BID #20 tablet 05/09/17 Allergies Allergy/AdvReac Type Severity Reaction Status Date / Time Penicillins Allergy Rash Verified 01/26/17 12:03 Gastrointestinal: Reports: nausea Neurological: Reports: weakness Past Medical History - Past Medical History Medical history: Reports: cancer, diabetes, myocardial infarction Surgical history: Reports: cataract, cholecystectomy, orthopedic, other Psychiatric history: Reports: no psych history - Social History Smoking Status: Never smoker Smokeless Tobacco Status: No Alcohol use: Reports: none Drug use: Reports: none Physical Exam - General Limitations: no limitations General appearance: alert, in no apparent distress Course Vital Signs Temperature 100.8 F H 05/11/17 03:44 Pulse Rate 123 05/11/17 03:44 Respiratory Rate 18 05/11/17 03:44 Blood Pressure 114/84 05/11/17 03:44 O2 Sat by Pulse Oximetry 95 05/11/17 03:44 Temperature 100.8 F H 05/11/17 03:54 Pulse Rate 116 05/11/17 05:04 Respiratory Rate 22 05/11/17 05:04 Blood Pressure 109/54 05/11/17 05:04 O2 Sat by Pulse Oximetry 97 05/11/17 05:04 Oxygen Delivery Oxygen Delivery Room Air Medical Decision Making - Lab Data Result diagrams: 05/11/17 04:00 05/11/17 04:00 Lab Results 05/11/17 05/11/17 05/11/17 Range/Units 04:00 04:00 04:00 WBC 5.8 (4.3-11.1) K/mcL RBC 4.38 (4.19-5.50) M/mcL Hgb 13.0 (12.9-16.9) g/dL Hct 38.3 (37.5-50.1) % MCV 87.4 (83.0-100.0) fL MCH 29.7 (28.0-33.3) pg MCHC 33.9 (31.6-35.5) g/dL RDW 13.5 (11.5-14.5) % Plt Count 160 (140-400) K/mcL MPV 9.3 L (9.4-12.4) fL Immature Gran % 0.3 (0-4) % Seg Neutrophils % 83.1 % Lymphocytes % 9.4 % Monocytes % 6.7 % Eosinophils % 0.2 % Basophils % 0.3 % Neutrophils # 4.8 (1.6-8.9) K/mcL Lymphocytes # 0.6 (0.6-4.6) K/mcL Monocytes # 0.4 (0.0-1.3) K/mcL Eosinophils # 0.0 (0.0-0.6) K/mcL Basophils # 0.0 (0.0-0.2) K/mcL PT 13.7 H (9.4-12.1) Seconds INR 1.3 APTT 26.1 (26.0-36.0) Seconds Sodium 135 L (136-145) mEq/L Potassium 3.8 (3.5-5.1) mEq/L Chloride 102 (98-107) mEq/L Carbon Dioxide 19 L (23-29) mEq/L BUN 21 (8-23) mg/dL Creatinine 1.36 H (0.70-1.30) mg/dL Est GFR ( Amer) > 60 (> 60) Est GFR (Non-Af Amer) 50 L (> 60) BUN/Creatinine Ratio 15 (6-26) Glucose 247 H (70-105) mg/dL Calculated Osmolality 291 (280-300) Lactic Acid (0.5-2.2) mmol/L Calcium 9.0 (8.6-10.3) mg/dL Total Bilirubin 2.3 H (0.3-1.0) mg/dL Direct Bilirubin 0.5 H (0.0-0.2) mg/dL Indirect Bilirubin 1.8 H (0.0-1.2) mg/dL AST 30 (13-39) Units/L ALT 24 (7-52) Units/L Alkaline Phosphatase 71 (34-104) Units/L Troponin I < 0.03 (< 0.04) ng/mL Serum Total Protein 6.8 (6.4-8.9) g/dL Albumin 3.9 (3.5-5.7) g/dL Globulin 2.9 (2.4-3.5) g/dL Albumin/Globulin Ratio 1.3 (1.1-2.2) Urine Color (Yellow) Urine Clarity (Clear) Urine pH (5.0-8.0) pH Units Ur Specific [place] (1.010-1.025) Urine Protein (Neg-Trace) mg/dL Urine Glucose (UA) (Normal) mg/dL Urine Ketones (Negative) mg/dL Urine Blood (Negative) Urine Nitrite (Negative) Urine Bilirubin (Negative) Urine Urobilinogen (Normal) mg/dL Ur Leukocyte Esterase (Negative) Urine Microscopic RBC (0-3) per hpf Urine Microscopic WBC (0-3) per hpf Ur Squamous Epith Cells (None-Few) per lpf Urine Bacteria (None-Few) per hpf Hyaline Casts (None-Few) per lpf Ur Culture Indicated? (NO) 05/11/17 05/11/17 Range/Units 04:00 04:16 WBC (4.3-11.1) K/mcL RBC (4.19-5.50) M/mcL Hgb (12.9-16.9) g/dL Hct (37.5-50.1) % MCV (83.0-100.0) fL MCH (28.0-33.3) pg MCHC (31.6-35.5) g/dL RDW (11.5-14.5) % Plt Count (140-400) K/mcL MPV (9.4-12.4) fL Immature Gran % (0-4) % Seg Neutrophils % % Lymphocytes % % Monocytes % % Eosinophils % % Basophils % % Neutrophils # (1.6-8.9) K/mcL Lymphocytes # (0.6-4.6) K/mcL Monocytes # (0.0-1.3) K/mcL Eosinophils # (0.0-0.6) K/mcL Basophils # (0.0-0.2) K/mcL PT (9.4-12.1) Seconds INR APTT (26.0-36.0) Seconds Sodium (136-145) mEq/L Potassium (3.5-5.1) mEq/L Chloride (98-107) mEq/L Carbon Dioxide (23-29) mEq/L BUN (8-23) mg/dL Creatinine (0.70-1.30) mg/dL Est GFR ( Amer) (> 60) Est GFR (Non-Af Amer) (> 60) BUN/Creatinine Ratio (6-26) Glucose (70-105) mg/dL Calculated Osmolality (280-300) Lactic Acid 3.1 H (0.5-2.2) mmol/L Calcium (8.6-10.3) mg/dL Total Bilirubin (0.3-1.0) mg/dL Direct Bilirubin (0.0-0.2) mg/dL Indirect Bilirubin (0.0-1.2) mg/dL AST (13-39) Units/L ALT (7-52) Units/L Alkaline Phosphatase (34-104) Units/L Troponin I (< 0.04) ng/mL Serum Total Protein (6.4-8.9) g/dL Albumin (3.5-5.7) g/dL Globulin (2.4-3.5) g/dL Albumin/Globulin Ratio (1.1-2.2) Urine Color Red A (Yellow) Urine Clarity Cloudy A (Clear) Urine pH 5.0 (5.0-8.0) pH Units Ur Specific [place] > 1.030 H (1.010-1.025) Urine Protein Trace (Neg-Trace) mg/dL Urine Glucose (UA) >=1000 H (Normal) mg/dL Urine Ketones 15 H (Negative) mg/dL Urine Blood Large H (Negative) Urine Nitrite Negative (Negative) Urine Bilirubin Negative (Negative) Urine Urobilinogen Normal (Normal) mg/dL Ur Leukocyte Esterase Small H (Negative) Urine Microscopic RBC TNTC H (0-3) per hpf Urine Microscopic WBC 50-100 H (0-3) per hpf Ur Squamous Epith Cells Many H (None-Few) per lpf Urine Bacteria None Seen (None-Few) per hpf Hyaline Casts None Seen (None-Few) per lpf Ur Culture Indicated? NO. (NO) Critical Care Time Critical Care Time: Yes Total Critical Care Time: 40 Attestation: Critical care performed: Time is exclusive of separately billable procedures. Time includes: direct patient care, patient reassessment, coordination of patient care, interpretation of data (laboratory data, radiology data, and respiratory data), review of patient's medical records, medical consultation and documentation of patient care. Procedures included in critical care time: Procedures excluded from critical care time: Attestation Statement - Attestation Attestation: I, aSthya Ricks MD, personally evaluated this patient and discussed their management with the resident physician. I reviewed the resident's note and agree with the documented findings, medical decision making, and plan of care. 81-year-old male presents to the emergency department with a complaint of generalized weakness and nausea and fever. Patient straight catheters himself in the evenings before bedtime and was seen here 2 days ago for hematuria. He was felt to have a UTI and started on Cipro. He returns tonight complaining now of increasing generalized weakness over the past 2 days to the point that he is having difficulty ambulating and getting around. He also has had a fever for the last day or so. He complains of nausea but no vomiting. He denies any chest pain or shortness of breath. No abdominal pain. He continues to have gross hematuria. On examination patient is a well-developed well-nourished elderly male in no acute distress. He is alert and oriented 3. There is no cyanosis or diaphoresis. Mucous membranes are moist. Chest is nontender to palpation. Breath sounds are clear and equal bilaterally. Heart is regular with a mild tachycardia. Abdomen is soft and nontender with normal bowel sounds. No pedal edema. No gross focal neurological deficits. Labs reviewed. Lactic acid 3.2. Creatinine 1.36 which is above patient's baseline. In has too numerous to count red cells and 50-100 WBCs but still no bacteria noted. With patient's elevated lactic acid and tachycardia and fever I feel he likely has sepsis but no definite etiology. At this point is suspected to be urosepsis although there is no bacteria in the urine. Chest x- ray negative. CT of the abdomen and pelvis shows some asymmetric bladder wall thickening with some gas in the bladder however patient self catheters. EKG shows sinus tachycardia with a ventricular rate of 119. Frequent PACs. No acute ST segment elevations or depressions noted. Blood cultures obtained. Patient was started on IV Levaquin. The hospitalist, Dr. River, was consulted and accepted admission of the patient.
[2017-05-11] MEDS ORDERED: Dextrose Gel 15 GM/37.5 ML TUBE PO PRN ×2 (07:21)
[2017-05-11] MEDS ORDERED: *HR* Dextrose 50 % in Water (Syg) 50 ML SYRINGE IVP PRN (07:21)
[2017-05-11] MEDS ORDERED: D5% in Water 1,000 ML IVC PRN (07:21)
--- NOTE | 2017-05-11 07:45 | Internal Med History&Physical ---
Date of Encounter: 05/11/17 Time of Encounter: 07:35 Assessment and Plan (1) Sepsis Current visit: Yes Status: Acute Sepsis with fever 100.8, heart rate to 119 from UTI, will continue IV levaquin Qualifiers: Sepsis type: sepsis due to unspecified organism Qualified Code(s): A41.9 - Sepsis, unspecified organism (2) Nausea and vomiting Current visit: Yes Status: Acute Supportive care, IV fluids Qualifiers: Vomiting type: unspecified Vomiting Intractability: unspecified Qualified Code(s): R11.2 - Nausea with vomiting, unspecified (3) SAM (acute kidney injury) Current visit: Yes Status: Acute AKA from dehydration and nausea vomiting, will give IV fluid (4) Urinary tract infection Current visit: Yes Status: Acute Patient has history of bladder cancer, self cast at night. Likely catheter related UTI, continue levaquin Qualifiers: Urinary tract infection type: acute cystitis Hematuria presence: with hematuria Qualified Code(s): N30.01 - Acute cystitis with hematuria (5) CAD (coronary artery disease) Current visit: Yes Status: Acute Patient had [place] in January 2017 s/p3 stents placement, continue aspirin and brillinta Qualifiers: Coronary Disease-Associated Artery/Lesion type: [place] artery [place] vs. 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 Leone is a 81 year old male who has a history of bladder cancer, CAD non-STEMI,diabetes, hypertension, hypothyroidism, presented to emergency room for generalized weakness a week, intermittently hematuria. Patient lives at a home with , he is very active person, but over the last week he became pregressively weak. He straight Caths himself at night due to bladder cancer. Patient noticed that hematuria over last 2 days but he denies any painful frequency urination. Patient has generalized weakness, progressively gotten worse to the point he was unable to get up from the chair and walk He was in the emergency room 2 days ago, was placed to [facility]. But Cipro makes nausea and vomiting. In the emergency room he was afebrile temperature 100.8, heart rate 119, chest x-ray was negative. UA shows large amount of RBC, and WBC. He also showed a creatinine is about the normal. Patient is going to be admitted for generalized weakness due to UTI and the sepsis Past Med Surg Social Fam HX - Past Medical History Medical history: cancer, diabetes, myocardial infarction Psychiatric history: no psych history - Past Surgical History Surgical History: cataract, cholecystectomy, orthopedic, other - Social History Smoking Status: Never smoker Smokeless Tobacco Status: No Alcohol use: none Drug use: none Internal Medicine - H&P: Meds RX: Amitriptyline [Elavil] 50 mg PO HS 01/26/17 [History] RX: Aspirin [Lo-Dose Aspirin EC] 81 mg PO DAILY 01/26/17 [History] RX: Dapagliflozin Propanediol [Farxiga] 5 mg PO DAILY 01/26/17 [History] RX: Levothyroxine Sodium [Levoxyl] 75 mcg PO DAILY 01/26/17 [History] RX: Linagliptin [Tradjenta] 5 mg PO DAILY 01/26/17 [History] RX: Lisinopril [Zestril] 10 mg PO DAILY 01/26/17 [History] RX: Lutein [Natural Lutein] 20 mg PO DAILY 01/26/17 [History] RX: Metformin HCl [Glucophage] 1,000 mg PO BID 01/26/17 [History] RX: Multivitamin [Multivitamins] 1 cap PO DAILY 01/26/17 [History] RX: Atorvastatin [Lipitor] 40 mg PO HS #30 tablet 01/29/17 [Rx] RX: Metoprolol XL (24 HR) Succ [Toprol Xl] 12.5 mg PO DAILY #30 tab.er.24h 01/29 [Rx] Ticagrelor [Brilinta] 90 mg PO BID #60 tablet 01/29/17 [Rx] Ciprofloxacin [Cipro] 500 mg PO BID #20 tablet 05/09/17 [Rx] 3 Allergy/AdvReac Type Severity Reaction Status Date / Time Penicillins Allergy Rash Verified 01/26/17 12:03 All Systems PM: A 10-system review of systems was performed and is negative for pertinent findings except as documented above in the HPI. - Constitutional Vitals: Temp Pulse Resp BP Pulse Ox 98.3 F 105 17 92/60 95 05/11/17 07:03 05/11/17 07:03 05/11/17 07:03 05/11/17 07:03 05/11/17 07:03 General appearance: Present: cooperative, A&O X 3, pleasant Exam: CONSTITUTIONAL: Patient appears as an age appropriate male well developed, in no acute distress. EYES Clear sclerae, bilateral pupils are equal, reactive to light and accommodation. Extraocular movements are intact RESPIRATORY: No accessory muscle use, bilateral clear to auscultation, no wheezing, no crackles/rales. CARDIOVASCULAR: Regular heart rate, normal S1 and S2, no murmurs GASTROINTESTINAL: bowel sounds present, soft, no tenderness. No hepatosplenomegaly. No bilateral CVA tenderness MUSCULOSKELETAL: Joints in normal range of motion, no clubbing, no edema, no cyanosis. Bilateral peripheral pulses 2+ LYMPHATIC no lymphadenopathy in neck, groin and axilla bilaterally, no thyromegaly. NEUROLOGIC: CN II to XII are grossly intact, no focal neurological deficit. Deep tendon reflexes 2+ bilaterally. Normal light touch sensation to upper and lower extremity PSYCHIATRIC: Oriented x3, with good insight, mood is euthymic. No hallucinations or delusions. SKIN: Skin warm and dry, no rashes, no open wound. Internal Med - H&P Results - Labs CBC & Chem 7: 05/11/17 04:00 05/11/17 04:00
[2017-05-11] MEDS ORDERED: Naloxone 0.4 MG/ML INJ IVP PRN (07:56)
[2017-05-11] MEDS: Metoprolol XL (24 HR) Succ 25 MG TAB.ER.24H PO SCH (08:58)
[2017-05-11] MEDS: *HR* Ticagrelor 90 MG TABLET PO SCH ×2 (08:58→20:38)
[2017-05-11] MEDS: Aspirin Enteric Coated 81 MG Tablet PO SCH (08:59)
[2017-05-11] MEDS: Insulin LISPRO 300 UNITS/3 ML VIAL SQ SCH ×4 (09:00→20:38)
[2017-05-11] MEDS: 0.9 % Sodium Chloride 1,000 ML IVC SCH ×2 (09:00→18:47)
[2017-05-11] MEDS ORDERED: DAPAGLIFLOZIN PROPANEDIOL 5 MG PO SCH (09:00)
[2017-05-11] MEDS ORDERED: NON-FORMULARY MEDICATION 1 EACH EACH (Linagliptin [Tradjenta] 5 MG) PO SCH (09:00)
--- NOTE | 2017-05-11 12:46 | Electrocardiograph Report ---
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
[2017-05-11] MEDS: *HR* Heparin 5,000 UNIT/ML VIAL SQ SCH ×2 (14:18→20:37)
[2017-05-11] MEDS ORDERED: Acetaminophen 325 MG TABLET PO PRN (14:58)
[2017-05-12] MEDS: *HR* Heparin 5,000 UNIT/ML VIAL SQ SCH ×3 (05:22→21:55)
[2017-05-12 05:53] LABS: Hematocrit 35.6 % (37.5-50.1); Hemoglobin 12.2 g/dL (12.9-16.9); Mean Corpuscular HGB Conc 34.3 g/dL (31.6-35.5); Mean Corpuscular Hemoglobin 30.3 pg (28.0-33.3); Mean Corpuscular Volume 88.3 fL (83.0-100.0); Mean Platelet Volume 9.2 fL (9.4-12.4); Platelet Count 137 K/mcL (140-400); Red Blood Count 4.03 M/mcL (4.19-5.50); Red Cell Distribution Width 13.8 % (11.5-14.5)
[2017-05-12 06:11] LABS: Troponin I < 0.03 ng/mL (< 0.04)
[2017-05-12 06:30] LABS: Alanine Aminotransferase 31 Units/L (7-52); Albumin 3.2 g/dL (3.5-5.7); Albumin/Globulin Ratio 1.1 (1.1-2.2); Alkaline Phosphatase 62 Units/L (34-104); Aspartate Amino Transferase 47 Units/L (13-39); BUN/Creatinine Ratio 15 (6-26); Bilirubin,Total 2.2 mg/dL (0.3-1.0); Blood Urea Nitrogen 17 mg/dL (8-23); Calcium 8.5 mg/dL (8.6-10.3); Carbon Dioxide 22 mEq/L (23-29); Chloride 104 mEq/L (98-107); Chol/HDL Ratio 2.3 (0-4.9); Cholesterol 74 mg/dL (< 200); Globulin 2.8 g/dL (2.4-3.5); Glucose 161 mg/dL (70-105); HDL Cholesterol 32 mg/dL (40-59); LDL Cholesterol,Calculated 14 mg/dL (0-99); Magnesium 1.5 mg/dL (1.6-2.6); Osmolality,Calculated 285 (280-300); Potassium 3.8 mEq/L (3.5-5.1); Sodium 135 mEq/L (136-145); Triglycerides 140 mg/dL (< 150); eGFR For African Americans > 60 (> 60); eGFR For Non-African Americans > 60 (> 60)
[2017-05-12] MEDS: Insulin LISPRO 300 UNITS/3 ML VIAL SQ SCH ×4 (07:56→21:56)
[2017-05-12] MEDS: Metoprolol XL (24 HR) Succ 25 MG TAB.ER.24H PO SCH (07:57)
[2017-05-12] MEDS: Levofloxacin 750 MG/150 ML 750 MG/150 ML BAG IVPB SCH (07:58)
[2017-05-12] MEDS: *HR* Ticagrelor 90 MG TABLET PO SCH ×2 (07:58→21:55)
[2017-05-12] MEDS: Aspirin Enteric Coated 81 MG Tablet PO SCH (07:58)
--- NOTE | 2017-05-12 13:47 | Internal Med Progress Note ---
Date of Encounter: 05/12/17 Time of Encounter: 11:20 - Assessment and plan (1) Sepsis Current Visit: Yes Status: Acute Assessment and plan: Continue Levaquin. Cultures are so far negative. Patient feels clinically better. No new episodes of fever. Will continue current management. Follow blood culture and urine culture results. Moderate risk for complications. Qualifiers: Sepsis type: sepsis due to unspecified organism Qualified Code(s): A41.9 - Sepsis, unspecified organism (2) SAM (acute kidney injury) Current Visit: Yes Status: Acute Assessment and plan: Resolving now. Creatinine back to baseline at 1.16. (3) CAD (coronary artery disease) Current Visit: Yes Status: Chronic Assessment and plan: Continue aspirin, statin and beta jaziel Qualifiers: Coronary Disease-Associated Artery/Lesion type: [place] artery [place] vs. transplanted heart: [place] heart Associated angina: without angina Qualified Code(s): I25.10 - Atherosclerotic heart disease of [place] coronary artery without angina pectoris (4) Diabetes Current Visit: Yes Status: Chronic Assessment and plan: Blood sugars elevated today. Will increase sliding scale coverage. 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 Qualifiers: Vomiting type: unspecified Vomiting Intractability: unspecified Qualified Code(s): R11.2 - Nausea with vomiting, unspecified (7) Urinary tract infection Current Visit: Yes Status: Acute Assessment and plan: On IV Levaquin. Previously patient has grown staph epidermidis. Qualifiers: Urinary tract infection type: acute cystitis Hematuria presence: with hematuria Qualified Code(s): N30.01 - Acute cystitis with hematuria - Time Spent With Patient Total time spent is greater than 50% in coordination of care (as documented) at patient's floor/unit and/or counseling patient: - Subjective Interval history: Patient is awake and alert. Doing well overall. Feels much better today. Denies any fever or chills. No nausea or vomiting. No dysuria. - Constitutional Vitals: Temp Pulse Resp BP Pulse Ox 98.3 F 90 15 86/38 96 05/12/17 10:54 05/12/17 10:54 05/12/17 10:54 05/12/17 10:54 05/12/17 10:54 General appearance: Present: cooperative, A&O X 3, pleasant, answers questions appropriately - Neck Neck exam general surgery: Present: supple, trachea midline. Absent: lymphadenopathy - Respiratory Respiratory exam: Present: CTAB. Absent: accessory muscle use, rales, rhonchi, wheezes - Cardiovascular Cardiovascular exam: Present: RRR, +S1, +S2. Absent: diastolic murmur, gallop, rubs, systolic murmur - GI/Abdominal GI/Abdominal exam: Present: normal bowel sounds, soft, no peritoneal signs. Absent: distended, tenderness - Extremities Exam Extremities exam: Present: warm, radial pulses palpable and symmetrical. Absent : calf tenderness, cyanotic, pedal edema - Neurological Exam Neurological exam: Present: alert, oriented X3, no focal deficits. Absent: facial droop, speech deficit - Skin Skin exam: Present: dry, intact Internal Medicine: Result - Labs CBC & Chem 7: 05/12/17 05:29 05/12/17 05:29 Labs: Short CBC 05/12/17 Range/Units 05:29 WBC 3.0 L (4.3-11.1) K/mcL Hgb 12.2 L (12.9-16.9) g/dL Hct 35.6 L (37.5-50.1) % Plt Count 137 L (140-400) K/mcL BMP 05/12/17 05:29 Sodium 135 L Potassium 3.8 Chloride 104 Carbon Dioxide 22 L BUN 17 Creatinine 1.16 Glucose 161 H Calcium 8.5 L Cardiac Enzymes 05/12/17 Range/Units 05:29 Troponin I < 0.03 (< 0.04) ng/mL Liver Function 05/12/17 Range/Units 05:29 Total Bilirubin 2.2 H (0.3-1.0) mg/dL AST 47 H (13-39) Units/L ALT 31 (7-52) Units/L Alkaline Phosphatase 62 (34-104) Units/L Albumin 3.2 L (3.5-5.7) g/dL - ABG Interpretation ABG results: PT/INR, D-dimer PT 13.7 Seconds (9.4-12.1) H 05/11/17 04:00 Consult Discharge Plan - Plan Referrals: Beth Schulz MD [Primary Care Provider] -
[2017-05-12] MEDS ORDERED: Ringers Solution, Lactated 1,000 ML IVC SCH (14:00)
[2017-05-13] MEDS: *HR* Heparin 5,000 UNIT/ML VIAL SQ SCH (05:11)
[2017-05-13 08:07] VITALS: BP 109/66
[2017-05-13] MEDS: Insulin LISPRO 300 UNITS/3 ML VIAL SQ SCH (08:47)
[2017-05-13] MEDS: Aspirin Enteric Coated 81 MG Tablet PO SCH (08:48)
[2017-05-13] MEDS: Metoprolol XL (24 HR) Succ 25 MG TAB.ER.24H PO SCH (08:48)
[2017-05-13] MEDS: *HR* Ticagrelor 90 MG TABLET PO SCH (08:48)
[2017-05-13] MEDS: Levofloxacin 750 MG/150 ML 750 MG/150 ML BAG IVPB SCH (08:48)
--- NOTE | 2017-05-13 10:23 | Discharge Summary ---
- NOTES TO OUTPATIENT PROVIDER Notes to Outpatient Provider: Follow-up with urology for a chronic urinary retention. Patient developing recurrent urinary tract infections due to self- catheterization and use of Farxiga. Consider changing to a different drug. Date of Encounter: 05/13/17 Time of Encounter: 09:00 - Discharge Diagnosis (1) Sepsis Priority: Primary Status: Acute Qualifiers: Sepsis type: sepsis due to unspecified organism Qualified Code(s): A41.9 - Sepsis, unspecified organism (2) SAM (acute kidney injury) Priority: Secondary Status: Resolved (3) CAD (coronary artery disease) Priority: Secondary Status: Chronic Qualifiers: Coronary Disease-Associated Artery/Lesion type: [place] artery [place] vs. 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 Leone is a 81 year old male patient with history of diabetes mellitus, chronic urinary retention due to bladder cancer, coronary artery disease, hypertension who self-catheterizes once daily presented to the ER with complaints of generalized weakness, along with fever. He was diagnosed with sepsis from possible urinary tract infection. He was treated with IV antibiotics with improvement in his symptoms. He had previously been treated with Cipro for 2 days as outpatient. But it made him nauseated. He has tolerated Levaquin well here and will be discharged on this medication to complete treatment for UTI. His urine culture was negative. Patient appears to be having recurrent urinary tract infections related to self-catheterization and use of Farxiga. Recommended to wash hands with soap prior to self- catheterization. He is not doing much better and is back to baseline. He has not had any fever over the past 24 hours. He is clinically stable for discharge home. He is advised to return to the ER if he develops fever or chills night sweats or worsening dysuria. Discharge discussed with: patient - Time Spent with Patient Total time spent providing and/or coordinating discharge services: Greater than 30 minutes (35 min) - Discharge Medications Prescriptions: levoFLOXacin [Levaquin] 750 mg PO DAILY #7 tablet Home Medications: Amitriptyline [Elavil] 50 mg PO HS 01/26/17 [History] Aspirin [Lo-Dose Aspirin EC] 81 mg PO DAILY 01/26/17 [History] Dapagliflozin Propanediol [Farxiga] 5 mg PO DAILY 01/26/17 [History] Levothyroxine Sodium [Levoxyl] 75 mcg PO DAILY 01/26/17 [History] Linagliptin [Tradjenta] 5 mg PO DAILY 01/26/17 [History] Lisinopril [Zestril] 10 mg PO DAILY 01/26/17 [History] Lutein [Natural Lutein] 20 mg PO DAILY 01/26/17 [History] Metformin HCl [Glucophage] 1,000 mg PO BID 01/26/17 [History] Multivitamin [Multivitamins] 1 cap PO DAILY 01/26/17 [History] Atorvastatin [Lipitor] 40 mg PO HS #30 tablet 01/29/17 [Rx] Metoprolol XL (24 HR) Succ [Toprol Xl] 12.5 mg PO DAILY #30 tab.er.24h 01/29/17 [Rx] Ticagrelor [Brilinta] 90 mg PO BID #60 tablet 01/29/17 [Rx] levoFLOXacin [Levaquin] 750 mg PO DAILY #7 tablet 05/13/17 [Rx] Allergies/Adverse Reactions: 3 Allergy/AdvReac Type Severity Reaction Status Date / Time Penicillins Allergy Rash Verified 01/26/17 12:03 Date of admission: 05/11/17 16:45 Primary care physician: Beth Schulz Discharging clinician: Elvis Stoner Anticipated date of discharge: 05/13/17 - Constitutional Vitals: Temp Pulse Resp BP Pulse Ox 97.6 F 82 16 109/66 97 05/13/17 08:06 05/13/17 08:06 05/13/17 08:06 05/13/17 08:06 05/13/17 08:06 General appearance: Present: cooperative, A&O X 3, pleasant, answers questions appropriately - Neck Neck exam general surgery: Present: supple, trachea midline. Absent: lymphadenopathy - Respiratory Respiratory exam: Present: CTAB. Absent: accessory muscle use, rales, rhonchi, wheezes - Cardiovascular Cardiovascular exam: Present: RRR, +S1, +S2. Absent: diastolic murmur, gallop, rubs, systolic murmur - GI/Abdominal GI/Abdominal exam: Present: normal bowel sounds, soft, no peritoneal signs. Absent: distended, tenderness - Extremities Exam Extremities exam: Present: warm, radial pulses palpable and symmetrical. Absent : calf tenderness, cyanotic, pedal edema - Neurological Exam Neurological exam: Present: CN II-XII intact, oriented X3, no focal deficits. Absent: facial droop, speech deficit - Skin Skin exam: Present: dry, intact - Patient Status Disposition: Home, Self-Care Condition: Good Functional capacity at discharge: independent ambulation Overall status at discharge: patient is progressing back to baseline - Discharge Instructions Instructions: Urinary Tract Infection in Men (DC), Sepsis (DC) Follow Up With: Beth Schulz MD [Primary Care Provider] - (in 1-2 weeks) - Diet and Activity Activity: increase activity as tolerated Diet: diabetic diet, low fat, low cholesterol, low salt diet
[2017-05-14] MEDS ORDERED: levoFLOXacin 750 MG TABLET PO SCH (09:00)
== END 2017-05-13 12:26 | disposition home or self-care (01) | DRG 698 ==
LOC: EMEROO 03:40 → 2ANU 03:40 → SUATTDRO 16:45
PROVIDERS: ADMIT Internal Medicine; ATTEND Internal Medicine

== ENCOUNTER 2019-06-10 06:17 | Inpatient (IN) ==
[2019-06-10] MEDS ORDERED: levoFLOXacin 500 MG/100 ML 500 MG/100 ML BAG IVPB ONE (07:05)
[2019-06-10] MEDS ORDERED: MetroNIDAZOLE 500 MG/100 ML 500 MG/100 ML BAG IVPB ONE (07:06)
[2019-06-10] MEDS ORDERED: Ringers Solution, Lactated 1,000 ML IVC SCH (07:15)
[2019-06-10] MEDS ORDERED: *HR* HYDROmorphone PF 0.5 MG/0.5 ML SYRINGE IVP PRN (07:38)
[2019-06-10] MEDS ORDERED: Ondansetron 4 MG/2 ML VIAL IVP ONE (07:38)
[2019-06-10] MEDS ORDERED: Dexamethasone 4 MG/ML VIAL ONE (08:11)
[2019-06-10] MEDS ORDERED: Lidocaine -MPF 2% 2 ML VIAL ONE (08:11)
[2019-06-10] MEDS ORDERED: *HR* Rocuronium Bromide 50 MG/5 ML VIAL ONE ×2 (08:11→11:25)
[2019-06-10] MEDS ORDERED: Lidocaine HCL 4 ML Topical Solution (Laryng-O-Jet Kit Sterile Pak) TP ONE (08:11)
[2019-06-10] MEDS ORDERED: *HR* Succinylcholine 200 MG/10 ML VIAL IVP ONE (08:11)
[2019-06-10] MEDS ORDERED: Ondansetron 4 MG/2 ML VIAL ONE (08:11)
[2019-06-10] MEDS ORDERED: *HR* FentaNYL (PF) 100 MCG/2 ML VIAL ONE (08:14)
[2019-06-10] MEDS ORDERED: *HR* Propofol 200 MG/20 ML VIAL IVP ONE (08:14)
[2019-06-10] MEDS ORDERED: *HR* PHENYLEPHRINE 1,000 MCG/10 ML SYRINGE IVP ONE (08:51)
[2019-06-10] MEDS ORDERED: Bupivacaine/EPI 1:200k 0.5%PF 30 ML VIAL ONE (08:53)
[2019-06-10] MEDS ORDERED: Metoprolol XL (24 HR) Succ 25 MG TAB.ER.24H PO SCH (09:00)
[2019-06-10] MEDS ORDERED: *HR* Phenylephrine 10 MG/ML VIAL ONE (09:33)
[2019-06-10] MEDS ORDERED: *HR* OxyCODONE Immed Rel 5 MG TABLET PO PRN (13:55)
[2019-06-10] MEDS ORDERED: *HR* Dextrose 50 % in Water (Syg) 50 ML SYRINGE IVP PRN (13:55)
[2019-06-10] MEDS ORDERED: Dextrose Gel 15 GM/37.5 ML TUBE PO PRN ×2 (13:55)
[2019-06-10] MEDS ORDERED: D5% in Water 1,000 ML IVC PRN (13:55)
[2019-06-10] MEDS ORDERED: Morphine Sulfate Oral CONC 10 MG/0.5 ML ORAL.SYG SL PRN (13:55)
[2019-06-10] MEDS ORDERED: Ondansetron 4 MG/2 ML VIAL IVP PRN (13:55)
[2019-06-10] MEDS ORDERED: Naloxone 0.4 MG/ML INJ IVP PRN (13:55)
[2019-06-10] MEDS: MetroNIDAZOLE 500 MG/100 ML 500 MG/100 ML BAG IVPB SCH (15:53)
[2019-06-10] MEDS: 0.9 % Sodium Chloride 1,000 ML IVC SCH (15:53)
[2019-06-10] MEDS: Acetaminophen IV 1,000 MG/100 ML INFUS..BTL IVPB SCH (18:08)
[2019-06-10] MEDS: Insulin LISPRO 300 UNITS/3 ML VIAL SQ SCH (18:23)
[2019-06-11] MEDS: Acetaminophen IV 1,000 MG/100 ML INFUS..BTL IVPB SCH ×4 (00:21→17:12)
[2019-06-11] MEDS: MetroNIDAZOLE 500 MG/100 ML 500 MG/100 ML BAG IVPB SCH ×2 (00:24→08:55)
[2019-06-11] MEDS: Insulin LISPRO 300 UNITS/3 ML VIAL SQ SCH ×4 (00:26→17:12)
[2019-06-11 04:52] LABS: Hematocrit 38.3 % (37.5-50.1); Hemoglobin 12.7 g/dL (12.9-16.9); Immature Granulocytes % 0.4 % (0-4); Lymphocytes # 0.8 K/mcL (0.6-4.6); Lymphocytes % 8.8 %; Mean Corpuscular HGB Conc 33.2 g/dL (31.6-35.5); Mean Corpuscular Hemoglobin 30.1 pg (28.0-33.3); Mean Corpuscular Volume 90.8 fL (83.0-100.0); Monocytes # 0.9 K/mcL (0.0-1.3); Monocytes % 9.9 %; Neutrophils # 7.6 K/mcL (1.6-8.9); Platelet Count 194 K/mcL (140-400); Red Blood Count 4.22 M/mcL (4.19-5.50); Red Cell Distribution Width 12.3 % (11.5-14.5); Segmented Neutrophils % 80.9 %
[2019-06-11 04:56] LABS: White Blood Count 9.4 K/mcL (4.3-11.1)
[2019-06-11 05:10] LABS: BUN/Creatinine Ratio 14 (6-26); Blood Urea Nitrogen 16 mg/dL (8-23); Calcium 8.6 mg/dL (8.6-10.3); Carbon Dioxide 24 mEq/L (23-29); Chloride 102 mEq/L (98-107); Glucose 186 mg/dL (70-105); Osmolality,Calculated 284 (280-300); Potassium 4.4 mEq/L (3.5-5.1); Sodium 134 mEq/L (136-145); eGFR For African Americans > 60 (> 60); eGFR For Non-African Americans > 60 (> 60)
[2019-06-11] MEDS: 0.9 % Sodium Chloride 1,000 ML IVC SCH (08:55)
[2019-06-11] MEDS: lisinopriL 10 MG TABLET PO SCH (08:56)
[2019-06-11] MEDS: Metoprolol XL (24 HR) Succ 25 MG TAB.ER.24H PO SCH (08:56)
[2019-06-11] MEDS: Aspirin Enteric Coated 81 MG Tablet PO SCH (08:56)
[2019-06-11] MEDS: *HR* Heparin 5,000 UNIT/ML VIAL SQ SCH ×2 (11:44→17:11)
[2019-06-12] MEDS: Acetaminophen IV 1,000 MG/100 ML INFUS..BTL IVPB SCH ×2 (00:19→05:43)
[2019-06-12] MEDS: Insulin LISPRO 300 UNITS/3 ML VIAL SQ SCH ×2 (00:20→05:43)
[2019-06-12] MEDS: *HR* Heparin 5,000 UNIT/ML VIAL SQ SCH (05:40)
[2019-06-12] MEDS: Aspirin Enteric Coated 81 MG Tablet PO SCH (08:02)
[2019-06-12] MEDS: lisinopriL 10 MG TABLET PO SCH (08:03)
[2019-06-12] MEDS: Metoprolol XL (24 HR) Succ 25 MG TAB.ER.24H PO SCH (08:06)
[2019-06-12 10:25] VITALS: BP 107/57
== END 2019-06-12 12:17 | disposition home or self-care (01) | DRG 331 ==
LOC: SAMDAY 06:17 → 3ANU 13:50
PROVIDERS: ADMIT Surgery; ATTEND Surgery

== ENCOUNTER 2019-06-14 19:06 | Inpatient (IN) ==
[2019-06-14 20:45] LABS: Basophils # 0.1 K/mcL (0.0-0.2); Basophils % 0.7 %; Eosinophils # 0.3 K/mcL (0.0-0.6); Eosinophils % 3.4 %; Hematocrit 40.3 % (37.5-50.1); Hemoglobin 13.9 g/dL (12.9-16.9); Immature Granulocytes % 0.4 % (0-4); Lymphocytes # 1.3 K/mcL (0.6-4.6); Lymphocytes % 15.8 %; Mean Corpuscular HGB Conc 34.5 g/dL (31.6-35.5); Mean Corpuscular Hemoglobin 30.7 pg (28.0-33.3); Mean Platelet Volume 8.9 fL (9.4-12.4); Monocytes # 0.8 K/mcL (0.0-1.3); Monocytes % 9.8 %; Neutrophils # 5.9 K/mcL (1.6-8.9); Platelet Count 244 K/mcL (140-400); Red Blood Count 4.53 M/mcL (4.19-5.50); Red Cell Distribution Width 12.6 % (11.5-14.5); Segmented Neutrophils % 69.9 %; White Blood Count 8.5 K/mcL (4.3-11.1)
[2019-06-14 21:07] LABS: Alanine Aminotransferase 13 Units/L (7-52); Albumin 3.6 g/dL (3.5-5.7); Albumin/Globulin Ratio 1.2 (1.1-2.2); Alkaline Phosphatase 66 Units/L (34-104); Amylase 37 Units/L (29-103); Aspartate Amino Transferase 15 Units/L (13-39); BUN/Creatinine Ratio 17 (6-26); Bilirubin,Total 2.1 mg/dL (0.3-1.0); Blood Urea Nitrogen 18 mg/dL (8-23); Calcium 9.8 mg/dL (8.6-10.3); Carbon Dioxide 27 mEq/L (23-29); Chloride 100 mEq/L (98-107); Globulin 3.1 g/dL (2.4-3.5); Glucose 233 mg/dL (70-105); Lipase 27 Units/L (11-82); Osmolality,Calculated 291 (280-300); Potassium 3.9 mEq/L (3.5-5.1); Sodium 136 mEq/L (136-145); Total Protein 6.7 g/dL (6.4-8.9); eGFR For African Americans > 60 (> 60); eGFR For Non-African Americans > 60 (> 60)
[2019-06-14] MEDS ORDERED: 0.9 % Sodium Chloride 1,000 ML IVC ONE (21:24)
[2019-06-14] MEDS ORDERED: Naloxone 0.4 MG/ML INJ IVP PRN (22:31)
[2019-06-14] MEDS ORDERED: Ondansetron 4 MG/2 ML VIAL IVP PRN (22:31)
[2019-06-14] MEDS ORDERED: *HR* Dextrose 50 % in Water (Syg) 50 ML SYRINGE IVP PRN (22:35)
[2019-06-14] MEDS ORDERED: Dextrose Gel 15 GM/37.5 ML TUBE PO PRN ×2 (22:35)
[2019-06-14] MEDS ORDERED: D5% in Water 1,000 ML IVC PRN (22:35)
[2019-06-15] MEDS: Insulin LISPRO 300 UNITS/3 ML VIAL SQ SCH ×4 (01:01→17:12)
[2019-06-15 02:50] LABS: Basophils % 0.6 %; Eosinophils # 0.3 K/mcL (0.0-0.6); Eosinophils % 3.7 %; Hemoglobin 13.3 g/dL (12.9-16.9); Immature Granulocytes % 0.4 % (0-4); Lymphocytes # 1.1 K/mcL (0.6-4.6); Lymphocytes % 15.2 %; Mean Corpuscular HGB Conc 34.1 g/dL (31.6-35.5); Mean Corpuscular Hemoglobin 30.4 pg (28.0-33.3); Mean Corpuscular Volume 89.2 fL (83.0-100.0); Mean Platelet Volume 9.1 fL (9.4-12.4); Monocytes # 0.7 K/mcL (0.0-1.3); Monocytes % 9.9 %; Neutrophils # 4.9 K/mcL (1.6-8.9); Platelet Count 257 K/mcL (140-400); Red Blood Count 4.37 M/mcL (4.19-5.50); Red Cell Distribution Width 12.5 % (11.5-14.5); Segmented Neutrophils % 70.2 %
[2019-06-15 02:51] LABS: INR 1.1; Prothrombin Time 12.4 Seconds (9.4-12.1)
[2019-06-15 03:08] LABS: BUN/Creatinine Ratio 19 (6-26); Blood Urea Nitrogen 19 mg/dL (8-23); Calcium 9.5 mg/dL (8.6-10.3); Carbon Dioxide 26 mEq/L (23-29); Chloride 102 mEq/L (98-107); Glucose 196 mg/dL (70-105); Magnesium 1.4 mg/dL (1.6-2.6); Osmolality,Calculated 292 (280-300); Sodium 137 mEq/L (136-145); eGFR For African Americans > 60 (> 60); eGFR For Non-African Americans > 60 (> 60)
[2019-06-15] MEDS: Ringers Solution, Lactated 1,000 ML IVC SCH ×3 (05:19→20:36)
[2019-06-15] MEDS: *HR* Enoxaparin 40 MG/0.4 ML SYRINGE SQ SCH (05:19)
[2019-06-15] MEDS: Pantoprazole 40 MG VIAL IVP SCH (05:19)
[2019-06-15] MEDS: Levothyroxine Sodium 100 MCG VIAL IVP SCH (05:19)
[2019-06-15] MEDS ORDERED: Lidocaine -MPF 2% 2 ML VIAL ONE (11:13)
[2019-06-15] MEDS ORDERED: *HR* Succinylcholine 200 MG/10 ML VIAL IVP ONE (11:13)
[2019-06-15] MEDS ORDERED: *HR* Propofol 200 MG/20 ML VIAL IVP ONE ×2 (11:14→11:50)
[2019-06-15] MEDS ORDERED: *HR* PHENYLEPHRINE 1,000 MCG/10 ML SYRINGE IVP ONE (12:04)
[2019-06-15] MEDS ORDERED: Simethicone 40 MG/0.6 ML MLS IR ONE (12:24)
[2019-06-15 16:41] LABS: Clarity,Urine Clear (Clear); Color,Urine Dark Yellow (Yellow)
[2019-06-15 16:42] LABS: Bilirubin,Urine Negative (Negative); Blood,Urine Negative (Negative); Glucose,Urine (UA) 250 mg/dL (Normal); Ketones,Urine 15 mg/dL (Negative); Leukocyte Esterase,Urine Small (Negative); Nitrite,Urine Negative (Negative); Protein,Urine Trace mg/dL (Neg-Trace); Urobilinogen,Urine Normal (Normal)
[2019-06-15 16:45] LABS: RBC,Urine 0-3 per hpf (0-3)
[2019-06-15 16:46] LABS: Squamous Epithelial Cell,Urine Many per lpf (None-Few)
[2019-06-15 16:57] LABS: Bacteria,Urine None Seen per hpf (None-Few); Hyaline Casts,Urine Few per lpf (None-Few); Mucus,Urine Few per lpf (Few)
[2019-06-15] MEDS: Insulin DETEMIR 100 UNIT/ML X5UNITS SQ SCH (20:39)
[2019-06-16] MEDS: Insulin LISPRO 300 UNITS/3 ML VIAL SQ SCH ×5 (00:24→23:54)
[2019-06-16] MEDS: Pantoprazole 40 MG VIAL IVP SCH (05:43)
[2019-06-16] MEDS: Ringers Solution, Lactated 1,000 ML IVC SCH ×3 (05:43→23:51)
[2019-06-16] MEDS: Levothyroxine Sodium 100 MCG VIAL IVP SCH (05:43)
[2019-06-16] MEDS: *HR* Enoxaparin 40 MG/0.4 ML SYRINGE SQ SCH (05:43)
[2019-06-16 09:37] LABS: Mean Corpuscular HGB Conc 34.2 g/dL (31.6-35.5); Mean Corpuscular Hemoglobin 30.8 pg (28.0-33.3); Mean Corpuscular Volume 89.9 fL (83.0-100.0); Mean Platelet Volume 8.8 fL (9.4-12.4); Platelet Count 205 K/mcL (140-400); Red Blood Count 3.67 M/mcL (4.19-5.50); Red Cell Distribution Width 12.6 % (11.5-14.5); White Blood Count 6.8 K/mcL (4.3-11.1)
[2019-06-16 09:45] LABS: Hemoglobin 11.3 g/dL (12.9-16.9)
[2019-06-16 09:54] LABS: BUN/Creatinine Ratio 19 (6-26); Blood Urea Nitrogen 19 mg/dL (8-23); Calcium 8.4 mg/dL (8.6-10.3); Carbon Dioxide 26 mEq/L (23-29); Chloride 104 mEq/L (98-107); Glucose 110 mg/dL (70-105); Osmolality,Calculated 287 (280-300); Potassium 4.1 mEq/L (3.5-5.1); Sodium 137 mEq/L (136-145); eGFR For African Americans > 60 (> 60); eGFR For Non-African Americans > 60 (> 60)
[2019-06-16] MEDS: Metoclopramide 10 MG/2 ML VIAL IVP SCH ×2 (15:31→23:51)
[2019-06-16] MEDS: Insulin DETEMIR 100 UNIT/ML X5UNITS SQ SCH (20:53)
[2019-06-17] MEDS: Insulin LISPRO 300 UNITS/3 ML VIAL SQ SCH ×4 (05:27→23:57)
[2019-06-17 05:51] LABS: Hematocrit 33.2 % (37.5-50.1); Mean Corpuscular HGB Conc 33.1 g/dL (31.6-35.5); Mean Corpuscular Hemoglobin 29.7 pg (28.0-33.3); Mean Corpuscular Volume 89.7 fL (83.0-100.0); Mean Platelet Volume 8.8 fL (9.4-12.4); Platelet Count 225 K/mcL (140-400); Red Cell Distribution Width 12.3 % (11.5-14.5); White Blood Count 6.3 K/mcL (4.3-11.1)
[2019-06-17 06:14] LABS: BUN/Creatinine Ratio 18 (6-26); Blood Urea Nitrogen 16 mg/dL (8-23); Calcium 8.3 mg/dL (8.6-10.3); Carbon Dioxide 23 mEq/L (23-29); Chloride 104 mEq/L (98-107); Glucose 104 mg/dL (70-105); Osmolality,Calculated 287 (280-300); Potassium 4.3 mEq/L (3.5-5.1); Sodium 138 mEq/L (136-145); eGFR For African Americans > 60 (> 60); eGFR For Non-African Americans > 60 (> 60)
[2019-06-17] MEDS: *HR* Enoxaparin 40 MG/0.4 ML SYRINGE SQ SCH (06:49)
[2019-06-17] MEDS: Levothyroxine Sodium 100 MCG VIAL IVP SCH (06:53)
[2019-06-17] MEDS: Pantoprazole 40 MG VIAL IVP SCH (06:53)
[2019-06-17] MEDS: Metoclopramide 10 MG/2 ML VIAL IVP SCH ×2 (07:58→15:55)
[2019-06-17] MEDS: Ringers Solution, Lactated 1,000 ML IVC SCH ×2 (11:50→21:59)
[2019-06-17] MEDS: Insulin DETEMIR 100 UNIT/ML X5UNITS SQ SCH (20:38)
[2019-06-18] MEDS: Pantoprazole 40 MG VIAL IVP SCH (05:17)
[2019-06-18] MEDS: *HR* Enoxaparin 40 MG/0.4 ML SYRINGE SQ SCH (05:18)
[2019-06-18] MEDS: Levothyroxine Sodium 100 MCG VIAL IVP SCH (05:20)
[2019-06-18] MEDS: Insulin LISPRO 300 UNITS/3 ML VIAL SQ SCH ×3 (05:21→17:13)
[2019-06-18 07:41] LABS: Hemoglobin 11.5 g/dL (12.9-16.9); Mean Corpuscular HGB Conc 33.8 g/dL (31.6-35.5); Mean Corpuscular Hemoglobin 30.7 pg (28.0-33.3); Mean Corpuscular Volume 90.7 fL (83.0-100.0); Mean Platelet Volume 10.2 fL (9.4-12.4); Platelet Count 156 K/mcL (140-400); Red Blood Count 3.75 M/mcL (4.19-5.50); Red Cell Distribution Width 12.1 % (11.5-14.5); White Blood Count 6.5 K/mcL (4.3-11.1)
[2019-06-18 07:55] LABS: BUN/Creatinine Ratio 15 (6-26); Blood Urea Nitrogen 12 mg/dL (8-23); Calcium 8.1 mg/dL (8.6-10.3); Carbon Dioxide 20 mEq/L (23-29); Chloride 103 mEq/L (98-107); Glucose 118 mg/dL (70-105); Osmolality,Calculated 281 (280-300); Potassium 3.5 mEq/L (3.5-5.1); Sodium 135 mEq/L (136-145); eGFR For African Americans > 60 (> 60); eGFR For Non-African Americans > 60 (> 60)
[2019-06-18] MEDS: Ringers Solution, Lactated 1,000 ML IVC SCH ×2 (08:34→21:49)
[2019-06-18 08:51] LABS: Magnesium 1.4 mg/dL (1.6-2.6); Phosphorous 2.8 mg/dL (2.7-4.5)
[2019-06-18] MEDS ORDERED: Insulin LISPRO 300 UNITS/3 ML VIAL SQ SCH (21:00)
[2019-06-18] MEDS: Insulin DETEMIR 100 UNIT/ML X5UNITS SQ SCH (21:49)
[2019-06-19 01:27] LABS: Hematocrit 34.2 % (37.5-50.1); Hemoglobin 11.8 g/dL (12.9-16.9); Mean Corpuscular HGB Conc 34.5 g/dL (31.6-35.5); Mean Corpuscular Hemoglobin 30.1 pg (28.0-33.3); Mean Corpuscular Volume 87.2 fL (83.0-100.0); Mean Platelet Volume 8.8 fL (9.4-12.4); Platelet Count 316 K/mcL (140-400); Red Blood Count 3.92 M/mcL (4.19-5.50); Red Cell Distribution Width 12.1 % (11.5-14.5); White Blood Count 7.7 K/mcL (4.3-11.1)
[2019-06-19 01:30] LABS: BUN/Creatinine Ratio 14 (6-26); Blood Urea Nitrogen 10 mg/dL (8-23); Calcium 8.2 mg/dL (8.6-10.3); Carbon Dioxide 19 mEq/L (23-29); Chloride 103 mEq/L (98-107); Glucose 104 mg/dL (70-105); Osmolality,Calculated 279 (280-300); Potassium 3.5 mEq/L (3.5-5.1); Sodium 135 mEq/L (136-145); eGFR For African Americans > 60 (> 60); eGFR For Non-African Americans > 60 (> 60)
[2019-06-19] MEDS: *HR* Enoxaparin 40 MG/0.4 ML SYRINGE SQ SCH (05:49)
[2019-06-19] MEDS: Pantoprazole 40 MG VIAL IVP SCH (05:50)
[2019-06-19] MEDS: Levothyroxine Sodium 100 MCG VIAL IVP SCH (05:50)
[2019-06-19] MEDS: Ringers Solution, Lactated 1,000 ML IVC SCH ×2 (05:57→09:08)
[2019-06-19] MEDS: Insulin LISPRO 300 UNITS/3 ML VIAL SQ SCH ×2 (09:06→12:48)
[2019-06-19 11:13] VITALS: BP 125/72
== END 2019-06-19 16:20 | disposition home or self-care (01) | DRG 394 ==
LOC: EMEROOARM 19:06 → 3ANU 19:06 → SUATTDRO 22:29 → 3ANU 23:10
PROVIDERS: ADMIT Student in an Organized Health Care Education/Training Program; ATTEND Family Medicine